=== PATIENT | male | born 1980 | race Caucasian/White ===

== ENCOUNTER 2018-04-10 21:55 | Emergency (ER) | payer SELFPAY ==
[2018-04-10 21:56] VITALS: BP 112/68; PULSE 76; RESP 18; TEMP 36.6; O2SAT 95; BMI 29.3
--- NOTE | 2018-04-10 22:39 | ED.VISSUMM ---
- ER Visit Summary Date of Service: 04/10/18 Chief Complaint: [] Abdominal pain History of Present Illness: The patient is a 37 M with abdominal pain on and off for last 2 years. He came on this morning and has been worse. It is located in the periumbilical area and is a pressure. Current severity is mild to moderate. Worsened by sitting up and relieved by laying on his side. Associated on and off with vomiting usually every day for the last year. He had normal bowel movement this morning. He was admitted a couple years ago at [facility] for similar complaints. He stated they never really found out what was the cause. He stated he has been [facility] about 4 times in the last year for this and they never been able to figure it out. Comes in for second opinion. He was at [facility] this evening and was recently just discharged from the ER. He came here for second opinion. He had labs done and was discharged. He was given a GI referral. He stated they gave him no medications to help with his symptoms. He stated he had a negative CAT scan [facility] just 2 weeks ago. This was of his abdomen. Physical Examination: [] Vital signs reviewed General: Well-nourished well-developed Head: Normocephalic atraumatic Eyes: Pupils equal round and reactive to light extraocular movements intact ENT: TMs clear no hemotympanum no trauma Neck: Nontender full range of motion Cardiovascular: Regular rate rhythm no murmurs normal S1-S2 Respiratory: No distress clear to auscultation bilaterally chest nontender Abdomen: Soft mild periumbilical tenderness nondistended normal bowel sounds no masses. No guarding or rebound Back: Nontender no CVA tenderness Extremities: Nontender active range of motion ?4 extremities no trauma Skin: Normal color no trauma Neuro alert oriented cranial nerves II through XII intact normal strength sensation reflexes Test Results: [] Emergency Department Course and Treatment: [] Patient was given a dose of Bentyl for his symptoms. He is not nauseous currently. He asked for oral and not an intramuscular injection. I discussed doing repeat lab work and imaging with the patient. He stated that he just had this done it would not like this again. I do not feel he is toxic. This appears to be a chronic issue for the patient. He was given a referral to our grapple yarder operator at his request. He will be discharged with a short course of Bentyl, Pepcid, Zofran. He will return if he worsens Treatment Plan: [] Disposition: [] Impression: [] Abdominal pain Nausea and vomiting This note was generated with Fo[employer] dictation software. It may contain incorrect words, spelling, and punctuation that were not noted in review of the chart prior to signing ED Disposition - Plan for ED Patient: Referrals: Care Physician,No Primary [Primary Care Provider] -
--- NOTE | 2018-04-10 22:42 | ED.DCSUM_ITS ---
- ER Visit Summary Date of Service: 04/10/18 Chief Complaint: [] Abdominal pain History of Present Illness: The patient is a 37 M with abdominal pain on and off for last 2 years. He came on this morning and has been worse. It is located in the periumbilical area and is a pressure. Current severity is mild to moderate. Worsened by sitting up and relieved by laying on his side. Associated on and off with vomiting usually every day for the last year. He had normal bowel movement this morning. He was admitted a couple years ago at [facility] for similar complaints. He stated they never really found out what was the cause. He stated he has been [facility] about 4 times in the last year for this and they never been able to figure it out. Comes in for second opinion. He was at [facility] this evening and was recently just discharged from the ER. He came here for second opinion. He had labs done and was discharged. He was given a GI referral. He stated they gave him no medications to help with his symptoms. He stated he had a negative CAT scan [facility] just 2 weeks ago. This was of his abdomen. Physical Examination: [] Vital signs reviewed General: Well-nourished well-developed Head: Normocephalic atraumatic Eyes: Pupils equal round and reactive to light extraocular movements intact ENT: TMs clear no hemotympanum no trauma Neck: Nontender full range of motion Cardiovascular: Regular rate rhythm no murmurs normal S1-S2 Respiratory: No distress clear to auscultation bilaterally chest nontender Abdomen: Soft mild periumbilical tenderness nondistended normal bowel sounds no masses. No guarding or rebound Back: Nontender no CVA tenderness Extremities: Nontender active range of motion ?4 extremities no trauma Skin: Normal color no trauma Neuro alert oriented cranial nerves II through XII intact normal strength sensation reflexes Test Results: [] Emergency Department Course and Treatment: [] Patient was given a dose of Bentyl for his symptoms. He is not nauseous currently. He asked for oral and not an intramuscular injection. I discussed doing repeat lab work and imaging with the patient. He stated that he just had this done it would not like this again. I do not feel he is toxic. This appears to be a chronic issue for the patient. He was given a referral to our typesetting machine tender at his request. He will be discharged with a short course of Bentyl, Pepcid, Zofran. He will return if he worsens Treatment Plan: [] Disposition: [] Impression: [] Abdominal pain Nausea and vomiting This note was generated with [employer] dictation software. It may contain incorrect words, spelling, and punctuation that were not noted in review of the chart prior to signing ED Disposition - Plan for ED Patient: Referrals: Care Physician,No Primary [Primary Care Provider] -
--- NOTE | 2018-04-10 22:42 | ED.DEP ---
ED Disposition - Plan for ED Patient: Disposition: Home or Assisted Living Instructions: ED Abdominal Pain Unkn Cause Prescriptions: Ondansetron [Zofran Odt] 4 mg PO Q8H PRN PRN #10 tab PRN Reason: Nausea Dicyclomine HCl [Bentyl] 20 mg PO TIDAC #20 cap Famotidine [Pepcid] 20 mg PO BID #28 tab Referrals: Sam Gerardo DO [NON CLINICAL AFFILIATE] - Cristhian De Jesus MD [NON-STAFF] -
[2018-04-10] MEDS: Dicyclomine 10 MG Capsule 20 MG PO (23:06)
== END 2018-04-10 23:13 | disposition home or self-care (01) ==
LOC: ED 22:56
PROVIDERS: Emergency Provider Emergency Medicine
DX: R10.9 Unspecified abdominal pain (principal); R11.2 Nausea with vomiting, unspecified; Z72.0 Tobacco use
CPT/HCPCS: 99283

== ENCOUNTER 2018-10-02 14:24 | Emergency (ER) | payer MEDICAID, SELFPAY ==
[2018-10-02 14:25] VITALS: BP 104/74; PULSE 75; RESP 16; TEMP 36.3; BMI 25.4
[2018-10-02 15:21] LABS: Absolute Neutrophil Count 7.8 X10^3/uL (2.0-7.7); Basophil# 0.06 X10^3/uL; Basophil% 0.5 % (0-1); Eosinophil# 0.08 X10^3/uL; Eosinophils% 0.7 % (0-5); Hematocrit 44.1 % (40-54); Hemoglobin 15.5 g/dL (13.0-16.5); Lymphocyte % 23.3 % (19-41); Mean Corp Hgb Conc 35.1 g/dL (32-36); Mean Corpuscular Hgb 32.4 pg (27.0-32.0); Mean Corpuscular Volume 92.3 fL (80-94); Mean Platelet Vol. 9.3 fl (6.2-12.0); Monocyte# 0.57 X10^3/uL; Monocyte% 5.1 % (0-10); NRBC Flagged by Analyzer 0 % (0-5); Neutrophil # 7.78 X10^3/uL (2.7-7.7); Platelet Count 294 K/mm3 (150-450); RBC Distribution Width CV 12.4 % (11.6-14.6); RBC Distribution Width SD 42.5 fl (35.1-43.9); Red Blood Count 4.78 M/mm3 (4.6-6.2); White Blood Count 11.1 K/mm3 (4.4-11.0)
[2018-10-02 15:32] LABS: Anion Gap 5 (5-15); BUN 11 mg/dL (7-18); BUN/Creat Ratio 11.4 RATIO (10-20); Calcium,Total 8.9 mg/dL (8.5-10.1); Chloride 107 mmol/L (98-107); Creatinine, Serum 0.97 mg/dL (0.70-1.30); EST Glomerular Filtration Rate 92 mL/min (>60); Est Glom Filt Rate - Afr Amer 111 mL/min (>60); Estimated Creatinine Clearance 118.87 ml/min; Glucose 91 mg/dL (74-106); Sodium Level 139 mmol/L (136-145)
--- NOTE | 2018-10-02 17:20 | ED.DCSUM_ITS ---
History of Present Illness Chief Complaint: Nausea/Vomiting/Diarrhea Detail of Chief Complaint: Abdominal pain and diarrhea Informant: Patient Onset: - - Diarrhea times several weeks, abdominal pain today Current Severity: Mild Maximum Severity: Moderate Narrative: Patient presents with a several week history of diarrhea. Patient states today he actually had formed stool for the first time in quite a while. He thinks there may have been some blood associated today. He woke at 5 AM this morning with lower abdominal cramping. Patient is concerned he may have Crohn's disease. He does not know his family history. He has not had fever or chills. No recent travel or antibiotic usage. Past Medical History - Allergies and Home Meds Allergies/Adverse Reactions: Allergies No Known Allergies Allergy (Verified 04/10/18 21:56) Primary Care Physician: Care Physician,No Primary [Primary Care Provider] - Doctors: [facility] Prior records reviewed: Yes Past Medical History: - - Reviewed Lives: Spouse/ Significant Other Smoking Status: Current every day smoker Drugs: Marijuana Review of Systems General: Denies: Chills, Fever Eyes: Denies: Visual changes - bilaterally ENT: Denies: Bilateral ear pain Cardiovascular: Denies: Chest pain Respiratory: Denies: Dyspnea, Cough Gastrointestinal: Reports: Abdominal pain, Diarrhea. Denies: Nausea, Vomiting Genitourinary: Denies: Dysuria Musculoskeletal: Denies: Myalgias, Arthralgias Skin: Denies: Rash Neurological: Denies: Headache Endocrine: Denies: Polyuria, Polydipsia Hematologic: Denies: Easy bruising Allergy: Denies: Uticaria Physical Exam Vital Signs/Narrative: Vital Signs Temp Pulse Resp BP 10/02/18 14:25 97.3 F L 75 16 104/74 Inital Vital Signs reviewed: Yes General: Well nourished, Well developed ENT: Moist mucous membranes Neck: Supple Cardiovascular: Regular rate, Regular rhythm Respiratory: No distress, CTA bilaterally Abdomen: Soft, Nontender, Hypoactive bowel sounds Extremities: Nontender, No edema Skin: Normal color, No rash Neurological: Alert, Oriented x3 Psychological: Normal affect Diagnostic/Tx/Re-eval Laboratory Results 10/02/18 10/02/18 10/02/18 15:10 15:10 15:10 WBC 11.1 H RBC 4.78 Hgb 15.5 Hct 44.1 MCV 92.3 MCH 32.4 H MCHC 35.1 RDW Std Deviation 42.5 RDW Coeff of Roberth 12.4 Plt Count 294 MPV 9.3 Immature Gran % (Auto) 0.400 Neut % (Auto) 70.0 Lymph % (Auto) 23.3 [place] % (Auto) 5.1 Eos % (Auto) 0.7 Baso % (Auto) 0.5 Absolute Neuts (auto) 7.8 H Absolute Lymphs (auto) 2.60 Nucleated RBC % 0 Sodium 139 Potassium 4.0 Chloride 107 Carbon Dioxide 27.0 Anion Gap 5 BUN 11 Creatinine 0.97 Estim Creat Clear Calc 118.87 Est GFR (MDRD) Af Amer 111 Est GFR (MDRD) Non-Af 92 BUN/Creatinine Ratio 11.4 Glucose 91 Calcium 8.9 Total Bilirubin 0.60 Direct Bilirubin 0.16 AST 14 L ALT 35 Alkaline Phosphatase 108 Total Protein 7.6 Albumin 4.1 Globulin 3.5 Urine Color Urine Clarity Urine pH Ur Specific [place] Urine Protein Urine Glucose (UA) Urine Ketones Urine Occult Blood Urine Nitrite Urine Bilirubin Urine Urobilinogen Ur Leukocyte Esterase Urine RBC Urine WBC Ur Squamous Epith Cells Amorphous Sediment Urine Bacteria Urine Mucus 10/02/18 18:40 WBC RBC Hgb Hct MCV MCH MCHC RDW Std Deviation RDW Coeff of [place] Plt Count MPV Immature Gran % (Auto) Neut % (Auto) Lymph % (Auto) [place] % (Auto) Eos % (Auto) Baso % (Auto) Absolute Neuts (auto) Absolute Lymphs (auto) Nucleated RBC % Sodium Potassium Chloride Carbon Dioxide Anion Gap BUN Creatinine Estim Creat Clear Calc Est GFR (MDRD) Af Amer Est GFR (MDRD) Non-Af BUN/Creatinine Ratio Glucose Calcium Total Bilirubin Direct Bilirubin AST ALT Alkaline Phosphatase Total Protein Albumin Globulin Urine Color Yellow Urine Clarity Sl. Cloudy Urine pH 8.0 Ur Specific [place] 1.015 Urine Protein Negative Urine Glucose (UA) Normal Urine Ketones Negative Urine Occult Blood Negative Urine Nitrite Negative Urine Bilirubin Negative Urine Urobilinogen Normal Ur Leukocyte Esterase 25 H Urine RBC 0 SEEN Urine WBC 0-5 SEEN Ur Squamous Epith Cells 0 SEEN Amorphous Sediment 1+ Urine Bacteria 0 SEEN Urine Mucus 0 SEEN - Medical Decision Making Patient was given Bentyl and Zofran. On repeat evaluation is resting comfortably. We discussed the possibility of Crohn's disease. He does not have a significantly elevated white count and he has a benign abdominal exam. Recommended follow-up with his PCP. He is to return for worsening symptoms. ED Disposition - Plan for ED Patient: Disposition: Home or Assisted Living Instructions: ABDOMINAL PAIN, Unkown Cause, (Male) Prescriptions: Dicyclomine HCl [Bentyl] 20 mg PO TIDAC #20 capsule Ondansetron [Zofran Odt] 4 mg PO Q8H PRN PRN #10 tablet PRN Reason: Nausea Additional Instructions: Follow-up with your doctor in the next 5-7 days.
[2018-10-02] MEDS: Ondansetron 4 MG/2 ML Vial IV (18:33)
[2018-10-02] MEDS: 0.9% Normal Saline 1,000 ML 1000 ML IV (18:33)
[2018-10-02] MEDS: Dicyclomine 20 MG/2 ML Vial IM (18:33)
[2018-10-02 18:47] LABS: Bacteria 0 SEEN /hpf (None Seen); Mucous, Urine 0 SEEN /hpf (<or=2+); Red Blood Cells-Urine 0 SEEN /hpf (0-5); Squamous Epithelial Cells - UA 0 SEEN /hpf (0-5)
[2018-10-02 18:48] LABS: Color, Urine Yellow (Yellow); Glucose, Dipstick Normal (Normal); Ketone-Dipstick Negative (Negative); Leukocyte Esterase-Dipstick 25 /ul (Negative); Nitrite-Dipstick Negative (Negative); Occult Blood-Urine Negative /ul (Negative); Protein-Dipstick Negative (Negative); Specific Gravity, Urine 1.015 (1.002-1.030); Urine Bilirubin Dipstick Negative (Negative); Urine Clarity Sl. Cloudy (Clear); Urine Urobilinogen Normal (Normal)
[2018-10-02 18:56] LABS: Amorphous Sediment 1+; White Blood Cells 0-5 SEEN /hpf (0-5)
[2018-10-02 19:07] LABS: AST(SGOT) 14 U/L (15-37); Alanine Aminotransfer ALT/SGPT 35 U/L (16-61); Albumin, Serum 4.1 g/dL (3.2-5.0); Alkaline Phosphatase 108 U/L (45-117); Bilirubin, Direct 0.16 mg/dL (0.00-0.30); Globulin 3.5 g/dL (2.2-4.2); Protein, Total 7.6 g/dL (6.4-8.2)
[2018-10-02 20:13] VITALS: BP 142/80; PULSE 72; RESP 18; O2SAT 99
== END 2018-10-02 20:14 | disposition home or self-care (01) ==
PROVIDERS: Emergency Provider Emergency Medicine
DX: R11.2 Nausea with vomiting, unspecified (principal); R10.9 Unspecified abdominal pain; R19.7 Diarrhea, unspecified; F17.200 Nicotine dependence, unspecified, uncomplicated; Z79.899 Other long term (current) drug therapy
CPT/HCPCS: 80048; 80076; 81001; 85025; 96361; 96374; 99285; J7030; A4216; J2405

== ENCOUNTER 2018-12-07 21:20 | Emergency (ER) | payer MEDICAID, SELFPAY ==
[2018-12-07 21:20] VITALS: BP 136/84; PULSE 95; RESP 16; TEMP 37; O2SAT 99; BMI 25.0
--- NOTE | 2018-12-07 21:35 | ED.VIS.GEN ---
History of Present Illness Chief Complaint: Abd Pain Informant: Patient Onset: - - Years of symptoms Current Severity: Mild Maximum Severity: Mild Narrative: Patient presents complaining of right and left-sided lower abdominal pain that is been going on for years at least 3 or more indicates had extensive outpatient evaluation with blood tests possibly imaging and he was told there is concern for inflammatory bowel disease such as Crohn's and he needs follow-up with GI for colonoscopy but he is not wanted to follow-up for that procedure indicates he has intermittent episodes of pain that intensify, indicates he is having appointment to see his physicians tomorrow for the management of all the above and he simply came to emergency room to see if he could get something to control his pain until he can see his physicians tomorrow He has history of chronic diarrhea, he is been able to eat and drink he has had no blood in his stool normal urinary habits no trauma no fever no cough no surgery Past Medical History - Allergies and Home Meds Allergies/Adverse Reactions: Allergies No Known Allergies Allergy (Verified 12/07/18 21:23) Primary Care Physician: Care Physician,No Primary [Primary Care Provider] - Past Medical History: - - Chronic abdominal pain diarrhea Smoking Status: Current every day smoker Review of Systems General: Denies: Chills, Fever, Sweats Eyes: Denies: Visual changes - bilaterally, Diplopia ENT: Denies: Rhinorrhea, Sore throat Cardiovascular: Denies: Chest pain, Palpitations Respiratory: Denies: Dyspnea, Cough, Dyspnea on exertion Gastrointestinal: Reports: Abdominal pain, Diarrhea. Denies: Nausea, Vomiting, Melena, Hematochezia Genitourinary: Denies: Dysuria, Hematuria, Frequency Musculoskeletal: Denies: Back pain, Extremity Pain Skin: Denies: Rash, Wounds Neurological: Denies: Headache, Weakness, Numbness Physical Exam Vital Signs/Narrative: Vital Signs Temp Pulse Resp BP Pulse Ox 12/07/18 21:20 98.6 F 95 16 136/84 H 99 General: Well nourished, Well developed, No Acute Distress Head: Normocephalic, Atraumatic Eyes: Perrl, EOMI ENT: Moist mucous membranes, No rhinorrhea Neck: Supple, Nontender Cardiovascular: Regular rate, Regular rhythm, No murmurs Respiratory: No distress, CTA bilaterally, Chest nontender Abdomen: Soft, Nontender, Nondistended, Normal bowel sounds Back: Nontender, Normal Inspection Extremities: Nontender, No edema Skin: Normal color, No rash Neurological: Alert, Oriented x3, Cranial nerves II-XII grossly intact, Normal Strength, Normal Sensation Psychological: Normal affect, Normal Mood Diagnostic/Tx/Re-eval - Medical Decision Making His abdomen is absolutely soft and nontender his exam is unremarkable his backs unremarkable his vital signs are normal I explained to him that the exact etiology of the above is unclear I recommended ED evaluation with labs imaging etc. he declined that saying he believes he has had those test before and he knows he needs to see a old testament professor to have a colonoscopy, he understands differentials rather extensive but again prefers outpatient management with his physicians tomorrow, at this time is treated with Toradol 60 mg IM he will stay in a bland diet and see his physicians and return for change in symptoms and again he declined any type of ED evaluation Home stable Final impression Acute recurrent abdominal pain and diarrhea ED Disposition - Plan for ED Patient: Diagnosis: Abdominal pain Instructions: ABDOMINAL PAIN, Unkown Cause, (Male) Referrals: Care Physician,No Primary [Primary Care Provider] -
--- NOTE | 2018-12-07 21:40 | ED.RN ---
patient upset with the treatment and exam by doctor. patient requesting to leave at this time. patient alert and oriented. patient walking out under own free will. patient given work excuse at this time
== END 2018-12-07 21:50 | disposition home or self-care (01) ==
LOC: ED 21:54
PROVIDERS: Emergency Provider Emergency Medicine
DX: R10.32 Left lower quadrant pain (principal); R10.31 Right lower quadrant pain; R19.7 Diarrhea, unspecified
CPT/HCPCS: 99282

== ENCOUNTER 2019-06-06 07:07 | Emergency (ER) | payer MEDICAID, SELFPAY ==
[2019-06-06 07:08] VITALS: BP 118/81; PULSE 84; RESP 16; TEMP 36.2; O2SAT 99; BMI 25.0
--- NOTE | 2019-06-06 07:20 | CT_ITS ---
STUDY: CT ABDOMEN AND PELVIS WITH CONTRAST REASON FOR EXAM: Male, 38 years old. LLQ pain, bright rectal bleeding x 2 days. Hx asthma. RADIATION DOSAGE (If Supplied By Facility): CTDIvol = ( 21.10 ) mGy, DLP = ( 1023.60 ) mGycm TECHNIQUE: Transaxial images were obtained from the dome of the diaphragm to the symphysis pubis without oral contrast. IV 100mL [id number] was administered. Sagittal and coronal images were reconstructed. Individualized dose optimization techniques were used for this CT. COMPARISON: None. FINDINGS: Mild degree of bilateral bibasilar dependent atelectasis. The visualized portions of the heart are within normal limits. Normal liver. Normal gallbladder and extrahepatic biliary system. Normal spleen. Normal pancreas. Normal bilateral adrenal glands. Normal right kidney. Normal left kidney. Normal visualized stomach. Normal small intestine. There are colonic diverticula consistent with diverticulosis. The appendix is visualized and appears normal. Normal abdominal aorta. Normal inferior vena cava. Normal retroperitoneum. Normal urinary bladder. There is a small umbilical hernia containing fat. Normal osseous structures. CT/Abdomen/Pelvis W IV Cont ONLY IMPRESSION: Sigmoid diverticulosis. Electronically Signed: Praneeth Ortiz, at 9:19 EDT , Service support ,
[2019-06-06] MEDS: 0.9% Normal Saline 1,000 ML 1000 ML IV (07:39)
[2019-06-06] MEDS: Ondansetron 4 MG/2 ML Vial IV (07:39)
[2019-06-06] MEDS: Morphine 4 MG/ML Syringe IV (07:41)
[2019-06-06 07:49] LABS: Absolute Lymphocyte Count 2.84 X10^3/uL (0.83-4.51); Basophil# 0.06 X10^3/uL; Basophil% 0.7 % (0-1); Eosinophil# 0.35 X10^3/uL; Eosinophils% 3.9 % (0-5); Hematocrit 39.6 % (40-54); Hemoglobin 13.8 g/dL (13.0-16.5); Lymphocyte # 2.84 X10^3/ul (4.0); Lymphocyte % 31.2 % (19-41); Mean Corp Hgb Conc 34.8 g/dL (32-36); Mean Corpuscular Hgb 31.4 pg (27.0-32.0); Mean Corpuscular Volume 90.2 fL (80-94); Monocyte# 0.76 X10^3/uL; Monocyte% 8.4 % (0-10); NRBC Flagged by Analyzer 0 % (0-5); Neutrophil # 5.03 X10^3/uL (2.7-7.7); Neutrophil % 55.2 % (47-70); Platelet Count 290 K/mm3 (150-450); RBC Distribution Width CV 13.1 % (11.6-14.6); RBC Distribution Width SD 43.7 fl (35.1-43.9); Red Blood Count 4.39 M/mm3 (4.6-6.2); White Blood Count 9.1 K/mm3 (4.4-11.0)
[2019-06-06 08:06] LABS: ALB/GLOB Ratio 1.2 RATIO (0.9-2.4); AST(SGOT) 24 U/L (15-37); Alanine Aminotransfer ALT/SGPT 46 U/L (16-61); Albumin, Serum 3.6 g/dL (3.2-5.0); Alkaline Phosphatase 95 U/L (45-117); Anion Gap 3 (5-15); BUN 10 mg/dL (7-18); BUN/Creat Ratio 12.1 RATIO (10-20); Calcium,Total 8.7 mg/dL (8.5-10.1); Chloride 109 mmol/L (98-107); Creatinine, Serum 0.83 mg/dL (0.70-1.30); EST Glomerular Filtration Rate 109 mL/min (>60); Est Glom Filt Rate - Afr Amer 132 mL/min (>60); Estimated Creatinine Clearance 137.55 ml/min; Globulin 3.1 g/dL (2.2-4.2); Glucose 100 mg/dL (74-106); Lipase 144 U/L (73-393); Potassium 3.7 mmol/L (3.5-5.1); Protein, Total 6.7 g/dL (6.4-8.2); Sodium Level 136 mmol/L (136-145)
[2019-06-06 08:15] LABS: Prothrombin Time (Protime)PT. 13.1 SECONDS (11.7-14.9)
[2019-06-06 08:16] LABS: Partial Thromboplast Time 31.3 Seconds (24.1-36.2)
--- NOTE | 2019-06-06 08:25 | ED.DCSUM_ITS ---
- ER Visit Summary Date of Service: 06/06/19 Chief Complaint: Abdominal pain History of Present Illness: The patient is a 38 M with left lower quadrant abdominal pain. This has been going for several months on and off. Today he is having bright red blood in his stool. He thinks he may have a history of C rohn's disease and had been seen in the ED for it multiple times, but he does not have an established GI doctor. Physical Examination: Afebrile and vital signs unremarkable. Abdomen slightly tender in the left lower quadrant. No guarding or rebound. Skin normal without pallor or jaundice. Otherwise exam unremarkable. Test Results: CBC normal. CMP unremarkable. Lipase normal. CT pending. Emergency Department Course and Treatment: Patient treated with fluids, pain medicine, Zofran while awaiting results. Labs were reassuring. Will check CT for complications there. Labs were unremarkable. A CT showed diverticulosis without diverticulitis or other complications. Patient is appropriate for outpatient follow-up and was referred to surgery boring machine operator horizontal. Treatment Plan: As above Disposition: Discharge Impression: Diverticulosis This note was generated with [employer] dictation software. It may contain incorrect words, spelling, and punctuation that were not noted in review of the chart prior to signing ED Disposition - Plan for ED Patient: Referrals: Matt Silva NP-C [Primary Care Provider] -
[2019-06-06 09:06] VITALS: BP 102/60; PULSE 51; RESP 18; O2SAT 96
--- NOTE | 2019-06-06 09:37 | ED.DEP ---
ED Disposition - Plan for ED Patient: Instructions: ED Unknown Causes of Abdominal Pain Male Referrals: Oscar Vines MD [STAFF PHYSICIAN] -
== END 2019-06-06 09:49 | disposition home or self-care (01) ==
PROVIDERS: Emergency Provider Emergency Medicine; PCP Nurse Practitioner Primary Care
DX: K57.30 Diverticulosis of large intestine without perforation or abscess without bleeding (principal); Z72.0 Tobacco use; Z79.899 Other long term (current) drug therapy
CPT/HCPCS: 74177; 80053; 83690; 85025; 85610; 85730; 96361; 96374; 96375; 99283; Q9967; A4216; J2405

== ENCOUNTER 2019-06-20 14:50 | Emergency (ER) | payer MEDICAID, SELFPAY ==
[2019-06-20 14:51] VITALS: BP 116/78; PULSE 92; RESP 18; TEMP 37.6; O2SAT 97; BMI 24.8
--- NOTE | 2019-06-20 15:02 | ED.VIS.GEN ---
History of Present Illness Chief Complaint: Abd Pain Detail of Chief Complaint: Pain worse today Informant: Patient Onset: - - Onset 4 years ago Context: Sudden Onset - Sudden onset of worsening lower abdominal pain while on the commode Timing: Continuous Quality: Pain Location: Generalized worse lower quadrant Current Severity: Severe Maximum Severity: Severe Worsened by: Movement Relieved by: Nothing Associated Symptoms: Diarrhea Narrative: Patient is a 38-year-old male who is a poor informant. He was seen earlier this month and had a CAT scan which revealed evidence of diverticulosis without evidence of diverticulitis. He reports having abdominal pain for approximately 4 years. This morning the pain got worse. States he was unable to go to work. He denies fever, chills or night sweats. There is no family history of inflammatory bowel disorder. He denies history of irritable bowel syndrome. He denies dysuria, frequency, urgency or hematuria. He denies mucus or blood in his stool. There is no history of trauma. Prior similar symptoms: Yes Recent Illness/Hospitalization: Yes - Past Medical History (1) Chronic abdominal pain Status: Chronic Past Medical History - Allergies and Home Meds Allergies/Adverse Reactions: Allergies No Known Allergies Allergy (Verified 06/20/19 14:51) Primary Care Physician: Matt Silva NP-C [Primary Care Provider] - Prior records reviewed: Yes Surgical History: no surgical history Lives: Spouse/ Significant Other Smoking Status: Current every day smoker Alcohol: Rare Drugs: None Review of Systems General: Denies: Chills, Fever, Malaise, Subjective, Sweats Eyes: Denies: Visual changes - bilaterally ENT: Denies: Rhinorrhea, Sore throat Cardiovascular: Denies: Chest pain, Palpitations Respiratory: Denies: Dyspnea, Cough, Sputum, Dyspnea on exertion Gastrointestinal: Reports: Abdominal pain, Diarrhea - When asked how many times a day he has a loose stool he states every time I go. He was unable to give a specific number, Hematochezia. Denies: Nausea, Vomiting, Constipation, Melena Genitourinary: Denies: Dysuria, Hematuria, Frequency Musculoskeletal: Denies: Myalgias, Arthralgias, Neck pain, Back pain, Swelling, Extremity Pain, -, - Skin: Denies: Rash, Wounds Neurological: Denies: Headache, Weakness, Numbness Endocrine: Denies: Polyuria, Polydipsia Hematologic: Denies: Easy bruising, Easy bleeding Physical Exam Vital Signs/Narrative: Vital Signs Temp Pulse Resp BP Pulse Ox 06/20/19 14:51 99.7 F H 92 18 116/78 97 Inital Vital Signs reviewed: Yes General: Well nourished, Well developed Head: Normocephalic, Atraumatic Eyes: Perrl, EOMI. Negative for: Pale conjunctiva, Scleral icterus ENT: No rhinorrhea Neck: Supple, Nontender, No lymphadenopathy, No JVD Cardiovascular: Regular rate, Regular rhythm, No murmurs, Normal S1, Normal S2 Respiratory: No distress, CTA bilaterally, Chest nontender Abdomen: Soft, Nondistended, No masses, Tender - Patient's tenderness is out of proportion to tactile stimulus., Hypoactive bowel sounds, Hepatomegaly, Splenomegaly, Pulsatile mass. Negative for: Nontender, Normal bowel sounds, Guarding, Rebound tenderness, Hyperactive bowel sounds Rectal: Deferred : - - There is no right or left inguinal lymphadenopathy and there is no palpable mass. Back: Nontender, Normal Inspection Extremities: Nontender, No edema Skin: Normal color, No rash, No Trauma. Negative for: Cyanosis, Diaphoresis, Jaundice Neurological: Alert, Oriented x3, Cranial nerves II-XII grossly intact, Normal Strength, Normal Sensation Psychological: Normal affect, Normal Mood Diagnostic/Tx/Re-eval - Medical Decision Making Presents with exacerbation of chronic abdominal pain. Temperature is 99.7 which is not normal but not a fever. Will obtain a CBC to assess white count. Basic metabolic panel to assess electrolytes and anion gap. Patient was medicated with Zofran and Bentyl. Differential diagnosis includes Crohn's disease, mesenteric adenitis, doubt appendicitis, abdominal pain of unknown etiology, irritable bowel syndrome Patient's history and physical was reviewed with the oncoming physician Dr. Enoch Tijerina. He will make disposition once labs have been drawn and resulted. ED Disposition - Plan for ED Patient: Referrals: Matt Silva NP-C [Primary Care Provider] -
[2019-06-20] MEDS: 0.9% Normal Saline 1,000 ML 1000 ML IV (15:18)
[2019-06-20] MEDS: Dicyclomine 10 MG Capsule 20 MG PO (15:18)
[2019-06-20] MEDS: Ondansetron 4 MG/2 ML Vial IV (15:18)
[2019-06-20 15:50] LABS: Absolute Lymphocyte Count 3.63 X10^3/uL (0.83-4.51); Absolute Neutrophil Count 4.2 X10^3/uL (2.0-7.7); Basophil# 0.06 X10^3/uL; Basophil% 0.7 % (0-1); Eosinophil# 0.24 X10^3/uL; Eosinophils% 2.7 % (0-5); Hematocrit 42.4 % (40-54); Hemoglobin 14.6 g/dL (13.0-16.5); Lymphocyte # 3.63 X10^3/ul (4.0); Mean Corp Hgb Conc 34.4 g/dL (32-36); Mean Corpuscular Hgb 30.8 pg (27.0-32.0); Mean Corpuscular Volume 89.5 fL (80-94); Mean Platelet Vol. 9.3 fl (6.2-12.0); Monocyte# 0.72 X10^3/uL; Monocyte% 8.1 % (0-10); NRBC Flagged by Analyzer 0 % (0-5); Neutrophil # 4.17 X10^3/uL (2.7-7.7); Neutrophil % 47.2 % (47-70); Platelet Count 298 K/mm3 (150-450); RBC Distribution Width SD 42.5 fl (35.1-43.9); Red Blood Count 4.74 M/mm3 (4.6-6.2); White Blood Count 8.9 K/mm3 (4.4-11.0)
[2019-06-20 16:05] LABS: Anion Gap 5 (5-15); BUN 8 mg/dL (7-18); BUN/Creat Ratio 9.4 RATIO (10-20); Calcium,Total 9.1 mg/dL (8.5-10.1); Chloride 107 mmol/L (98-107); Creatinine, Serum 0.85 mg/dL (0.70-1.30); EST Glomerular Filtration Rate 106 mL/min (>60); Est Glom Filt Rate - Afr Amer 128 mL/min (>60); Estimated Creatinine Clearance 134.31 ml/min; Glucose 97 mg/dL (74-106); Potassium 3.7 mmol/L (3.5-5.1); Sodium Level 138 mmol/L (136-145)
[2019-06-20 16:32] LABS: Lipase 104 U/L (73-393)
[2019-06-20 16:39] LABS: AST(SGOT) 17 U/L (15-37); Alanine Aminotransfer ALT/SGPT 31 U/L (16-61); Albumin, Serum 3.9 g/dL (3.2-5.0); Alkaline Phosphatase 84 U/L (45-117); Bilirubin, Direct 0.11 mg/dL (0.00-0.30); Globulin 3.3 g/dL (2.2-4.2); Protein, Total 7.2 g/dL (6.4-8.2)
[2019-06-20 17:21] VITALS: BP 112/57; PULSE 60; RESP 16; O2SAT 96
[2019-06-20] MEDS: Capsaicin 0.025% 1 APPLIC Tube TOPICAL (17:23)
--- NOTE | 2019-06-20 17:44 | ED.VISSUMM ---
- ER Visit Summary Date of Service: 06/20/19 Chief Complaint: [] History of Present Illness: The patient is a 38 M [] Physical Examination: [] Test Results: [] Emergency Department Course and Treatment: Patient signed out to me follow-up on laboratory work. CBC BMP normal, I did add lipase and LFT due to reported generalized pain which also was normal. Further discussion with the patient on reevaluation he reports history of marijuana use daily since he was 16 years old last use was yesterday. He was treated with capsaicin cream with improvement of symptoms, discussed with patient, this is a possibility causing his abdominal pain symptoms, then reports that he was abstinence from this for a couple years and still had symptoms, he restarted a year ago, discussed refraining from THC use and monitoring symptoms. He does have an appointment with Dr. Potter for which he was referred to [facility] over 2 weeks ago reporting he would likely get endoscopies as an outpatient. Prescription for Zofran and Bentyl, the capsaicin cream was sent home with the patient to use. Follow-up as discussed. Signs and symptom discussed return. All questions were answered. Treatment Plan: [] Disposition: Discharge Impression: 1. Nonspecific abdominal pain 2. Marijuana dependence This note was generated with [employer] dictation software. It may contain incorrect words, spelling, and punctuation that were not noted in review of the chart prior to signing ED Disposition - Plan for ED Patient: Disposition: Home or Assisted Living Diagnosis: Chronic abdominal pain, Tetrahydrocannabinol (THC) dependence Instructions: ED Unknown Causes of Abdominal Pain Male, ED Marijuana Abuse Prescriptions: Dicyclomine HCl [Bentyl] 20 mg PO Q6H PRN PRN #20 cap PRN Reason: abdominal pain Transmission Status: Pending to [facility] Ondansetron [Zofran Odt] 4 mg PO Q8H PRN PRN #10 tab PRN Reason: Nausea Transmission Status: Pending to [facility] Referrals: Matt Silva NP-C [Primary Care Provider] - Miles Potter MD [STAFF PHYSICIAN] - Keep Arnulfo appointment
[2019-06-20 17:57] VITALS: BP 140/79; PULSE 66; RESP 16; RESP 17; O2SAT 95
== END 2019-06-20 17:58 | disposition home or self-care (01) ==
PROVIDERS: Emergency Medicine; Emergency Provider Emergency Medicine; PCP Nurse Practitioner Primary Care
DX: R10.30 Lower abdominal pain, unspecified (principal); G89.29 Other chronic pain; R19.7 Diarrhea, unspecified; F17.200 Nicotine dependence, unspecified, uncomplicated
CPT/HCPCS: 80048; 80076; 83690; 85025; 96361; 96374; 99285; J7030; A4216; J2405

== ENCOUNTER 2019-06-25 08:29 | Day surgery (SDC) | payer MEDICAID, SELFPAY ==
[2019-06-22 08:45] VITALS: BMI 24.8
[2019-06-25] VITALS (7 sets, daily range): BP systolic 91–115; BP diastolic 38–71; PULSE 67–81; RESP 15–16; TEMP 36.3–36.5; O2SAT 95–100; BMI 24.9
[2019-06-25] MEDS: Lactated Ringers 1,000 ML 100 ML IV (08:57)
--- NOTE | 2019-06-25 08:59 | HP.PCM_ITS ---
History and Physical Date of Admission: 06/25/19 [facility] [address] [place] [address] OFFICE VISIT Date of Service: 06/22/19 MR#: [id number] Acct: [id number] Patient: NEERAJ MUÑIZ Rep #: [id number] : 1980 Provider: Miles hernandez MD Age/Sex: 38/M Location: [facility] Status: Signed Intake Vital Signs 06/22/19 BMI 24.8 06/22/19 Height 6 ft 2 in 06/22/19 Weight: 190 lb 06/22/19 BMI 24.3 Intake Visit Reasons: Abdominal Pain Chief Complaint: abdominal pain Supervisor Agency Appointments Required: No Is patient in pain?: Yes Pain scale (1-10): 6 Allergies No Known Allergies Allergy (Verified 06/22/19 08:33) Medications Omeprazole [Prilosec] 20 mg PO DAILY 10/02/18 [History Confirmed 06/22/19] Dicyclomine HCl [Bentyl] 20 mg PO Q6H PRN PRN #20 cap 06/20/19 [Rx Confirmed 06/22/19] Ondansetron [Zofran Odt] 4 mg PO Q8H PRN PRN #10 tab 06/20/19 [Rx Confirmed 06/22/19] PFSH Medical History Abdominal pain (Acute) Surgical History No history of previous surgery (Acute) Family History Grandmother Cancer stomach or intestinal cancer Diabetes Mother Cancer lung cancer Diabetes Grandfather CVA (cerebral vascular accident) Social History (Updated 06/22/19 @ 09:[address] Miles Potter MD) Smoking Status: Current every day smoker alcohol intake: current alcohol intake frequency: a few times a month substance use type: marijuana HPI HPI Chief Complaint: abdominal pain Details: Patient was informed that this visit will be billed to patient. This visit was conducted during . NEERAJ MUÑIZ, is a 38 M who presents to the office today for A telephone visit. This patient has had a 4-year history of increasing abdominal pain. He is noticed that there is no worsening with milk products and he has subsequently started to avoid these however this is not completely eliminated his pain. His pain is mostly centrally located. He has started to notice that he is developed blood in his loose diarrhea like stools. He was seen in the emergency department and was started on some Bentyl and a PPI and the Bentyl seems to have started to help. Patient also states that he has used daily marijuana which also has helped with some of his discomfort but not all of it. He does not notice a direct correlation with smoking and abdominal pain.His work-up in the emergency department showed that he had a normal CBC CAT scan of the abdomen and pelvis which showed sigmoid diverticulosis but otherwise was unrevealing other than a small umbilical hernia. ROS Const Constitutional: Positive for sleep problems and abnormal sleep pattern; no anorexia, body ache, chills, excessive sweating, fatigue, fever(s), frequent falls, headache(s), decreased energy, malaise, night sweats, snoring, weakness, weight change, change in appetite or other Eyes Eyes: No blurry vision, change in vision, double vision, discharge, dry eyes, bulging eyes, floaters, visual disturbances, eye pain, light sensitivity, spots in vision, tunnel vision or other ENT ENT: Positive for dizziness/vertigo; no abnormal hearing, ear pain, ear discharge, ear pressure, hearing loss, tinnitus, balance problems, nosebleed/epistaxis, nasal congestion, nasal obstruction, nose pain, sinus pressure, sinus pain, nasal discharge, post nasal drip, headache(s), facial pain, dental pain, dry mouth, difficulty swallowing, bad breath, hoarseness, lip swelling, mouth lesions, mouth pain, neck pain, sore throat, tongue swelling, throat swelling or other Resp Respiratory: Positive for cough and wheezing; no change in phlegm color, chest congestion, excessive phlegm production, hemoptysis, pain on inspiration, shortness of breath, pain with cough, snoring, stridor or other (asthma) Cardio Cardiology: Positive for chest pain with exertion and shortness of breath; no chest pain at rest, leg pain with exertion, excessive sweating, dyspnea on exertion, generalized swelling, irregular heart rhythm, lightheadedness, orthopnea, radiating jaw, neck or arm pain, fast heart rate, slow heart rate, palpitations or other Gastro GI: Positive for abdominal pain, diarrhea, blood in stool and nausea/dyspepsia; no belching, bloating, change in bowel habits, change in stool character, coffee ground emesis, constipation, cramping, heartburn, difficulty swallowing, feeling full early, excessive flatus, incontinent of stools, Vomiting blood/hematemesis, loose stools, Black,tarry stools, pain with swallowing, vomiting or other Genitourinary Male: No difficulty urinating, burning urination, painful urination, urinary incontinence, urinary frequency, urinary urgency, urinary hesitancy, urinary retention, blood in urine, Frequent nighttime urination/ nocturia, post void dribbling, suprapubic fullness, side pain, sexual problems, genital lesions, genital itching, erectile dysfunction, penile discharge, difficulty with ejaculations, blood in semen, scrotal swelling, testicle lump, testicle pain or other Musc Musculoskeletal: Positive for joint pain and back pain; no abnormal walking, deformity, joint swelling, limited range of motion, loss of height, muscle cramps, muscle weakness, decreased muscle mass, body aches, neck pain, numbness, radiating pain into limb, stiffness, tingling or other Skin Skin: No acne, hair loss, change in hair, nail changes, boil, change in skin color, dry skin, redness, excessive hair growth, yellowing of the skin, lesions, itching, rash, skin pain, skin ulcer, sores, skin swelling, wounds or other Breast Breast: No change in breast shape, breast lump, breast pain, breast skin changes, breast swelling, nipple discharge or other Neuro Neurology: Positive for dizziness; no abnormal walking, abnormal hearing, abnormal movements, abnormal speech, behavioral changes, confusion, unsteady gait/balance, weakness, frequent falls, headache(s), lack of coordination, loss of vision, memory loss, numbness, tingling, visual disturbances, restless legs, fainting, tremor(s) or other Psych Psychiatric: Positive for abnormal sleep pattern, No lack of enjoyment, No anxiety, No behavioral changes, No change in appetite, No confusion, Positive for depression, No difficulty concentrating, No hopelessness, No irritability, No memory loss, No mood swings, No panic attacks, No paranoia, No Thoughts of harming yourself/Others, No hallucinations, No other Endo Endocrine: No change in body appearance, cold intolerance, excessive sweating, fatigue, flushing, heat intolerance, increased thirst/drinking, increased hunger, increased urination or other Aller/Imm Allergy/Immunologic: Positive for wheezing; no food intolerance, itchy eyes, lip swelling, seasonal allergy symptoms, throat swelling, tongue swelling, hives or other Julio/Lymp Hematologic/Lymphatic: No easy bleeding, easy bruising, enlarged lymph nodes or other Exam Musc Musculoskeletal: No muscle weakness Details: Details:: Exam was limited due to phone visit with no video. Quality Reporting Medication Reconciliation (CMS 68) dicyclomine 20 mg (2 x 10 mg) PO Q6H PRN PRN omeprazole 20 mg PO DAILY ondansetron 4 mg PO Q8H PRN PRN BMI Screening (CMS 69) Body Mass Index (BMI): 24.8 Tobacco Screening (CMS 138) Smoking Status: Current every day smoker Assessment & Plan Problems 1. Chronic abdominal pain R10.9; G89.29 2. Bloody diarrhea R19.7 Plan I have discussed the above with the patient. I have offered the patient colonoscopy for evaluation. I have explained the risks/benefits of the procedure and described the procedure. I have discussed the risks with the patient, including but not limited to: infection, bleeding, perforation of the GI tract requiring emergency surgery, inability to complete the procedure, injury to any internal organs, complications of anesthesia, etc. - the patient understands and agrees to proceed. I have answered all the patient's questions to the patient's satisfaction and the patient has no further questions. The patient has been given instructions for the colon cleansing preparation. We will be doing random colon biopsies. 06/22/19901 <Electronically signed by Miles friedman MD> Date _ Miles Potter MD Cosigner Signature: Date (if applicable) CC: HAND COPERBryant Silva ~ I have re-examined the patient. There are no clinical changes since date of exam.
--- NOTE | 2019-06-25 09:00 | COLBX_PTH ---
PATIENT: NEERAJ MUÑIZ LOC: EN U#:[id number] AGE/SX: 38/M ROOM: RE06/25/[address]: Dr. Miles Potter MD : 1980 BED: DIS: 06/25/2019 SPEC #: [id number] RECD: 06/25/19 11:12 STATUS: HEENA BRAYDON #: [id number] MENDEL: 06/25/19 09:[address]: Miles Potter DEPT: SURGICAL PATHOLOGY RECD BY: Miguel Mulligan ENTERED: 06/25/19 11:52 SP TYPE: COLON BX OTHR DR: Matt Silva, VICE PRESIDENT OF NURSING-C Tissues: COLON BIOPSY Procedures: Surgery Specimen Level IV HEADER OPERATION: Colonoscopy (MAC) PRE-OP DIAGNOSIS: Abdominal pain TISSUE SUBMITTED: Random colon biopsies MICROSCOPIC DIAGNOSIS Colon, random biopsy: No significant pathologic change. See comment. AM:kenyatta 06/26/19 COMMENT Eosinophils are mildly increased in the mucosa. The significance of this is uncertain. MICROSCOPIC DESCRIPTION Slides are reviewed. GROSS DESCRIPTION Received in fixative is one container labeled with the patient's name and designated random colon biopsy. The specimen consists of multiple irregular fragments of light rich soft tissue that in aggregate measure 2 x 1 x <0.1 cm. The specimen is totally submitted in one cassette. / AM:kenyatta 06/25/19 TC:5 [facility]: [id number]
--- NOTE | 2019-06-27 12:29 | OP.COLON_ITS ---
Patient Name: Bry Boland Procedure Date: 06/25/2019 8:55 AM Date of : 1980 Age: 38 Procedure: Colonoscopy Indications: Generalized abdominal pain, Rectal bleeding Providers: Miles Potter MD Medicines: See the Anesthesia note for documentation of the administered medications Patient Profile: This is a 38 year old male. Refer to note in patient chart for documentation of history and physical. Last Colonoscopy: none. The patient's first colonoscopy is today. Complications: No immediate complications. Procedure: Pre-Anesthesia Assessment: - Prior to the procedure, a History and Physical was performed, and patient medications and allergies were reviewed. The patient's tolerance of previous anesthesia was also reviewed. The risks and benefits of the procedure and the sedation options and risks were discussed with the patient. All questions were answered, and informed consent was obtained. Prior Anticoagulants: The patient has taken no previous anticoagulant or antiplatelet agents. ASA Grade Assessment: II - A patient with mild systemic disease. After reviewing the risks and benefits, the patient was deemed in satisfactory condition to undergo the procedure. After I obtained informed consent, the scope was passed under direct vision. Throughout the procedure, the patient's blood pressure, pulse, and oxygen saturations were monitored continuously. The adult colonoscope was introduced through the anus and advanced to the cecum, identified by appendiceal orifice and ileocecal valve. The colonoscopy was performed without difficulty. The patient tolerated the procedure well. The quality of the bowel preparation was adequate to identify polyps 6 mm and larger in size. Scope In: 9:14:42 AM Scope Withdrawal Time 0 hours 7 minutes 49 seconds Scope Out: 9:29:41 AM Total Procedure Duration Time 0 hours 14 minutes 59 seconds Findings: The entire examined colon appeared normal. The colon (entire examined portion) appeared normal. Biopsies for histology were taken with a cold forceps from the entire colon for evaluation of microscopic colitis. Non-bleeding internal hemorrhoids were found during retroflexion. The hemorrhoids were mild and small. They did look irritated like they were probably the source of his bleeding. The exam was otherwise without abnormality. Impression: - The entire examined colon is normal. - The entire examined colon is normal. Biopsied. - Non-bleeding internal hemorrhoids. - The examination was otherwise normal. Recommendation: - Discharge patient to home. - Resume previous diet. - Continue present medications. - Await pathology results. - Repeat colonoscopy (date not yet determined) for surveillance. - Return to my office in 1 week. Procedure Code(s): --- Professional --- 66349, Colonoscopy, flexible; with biopsy, single or multiple Diagnosis Code(s): --- Professional --- K64.8, Other hemorrhoids R10.84, Generalized abdominal pain K62.5, Hemorrhage of anus and rectum CPT copyright 2017 [employer]. All rights reserved. The codes documented in this report are preliminary and upon advertisement distributor review may be revised to meet current compliance requirements. MD Miles Villalpando MD 06/25/2019 9:35:20 AM This report has been signed electronically. Number of Addenda: 0 Note Initiated On: 06/25/2019 8:55 AM
--- NOTE | 2019-06-27 12:29 | OP.CCLET_ITS ---
06/27/2019 Do [facility] Re : Colonoscopy procedure for Bry Joycer Ricardo This procedure was performed on Tuesday, June 25, 2019. My impressions and recommendations are as follows: Impressions : - The entire examined colon is normal. - The entire examined colon is normal. Biopsied. - Non-bleeding internal hemorrhoids. - The examination was otherwise normal. Recommendations : - Discharge patient to home. - Resume previous diet. - Continue present medications. - Await pathology results. - Repeat colonoscopy (date not yet determined) for surveillance. - Return to my office in 1 week. My findings are described in the full procedure note, which is enclosed. If I can be of further assistance, please feel free to contact me at Doctor phone number(s): , Fax: [phone], Work: . Sincerely, MD Miles Villalpando MD 06/25/2019 9:35:20 AM This report has been signed electronically.
== END 2019-06-25 10:17 | disposition home or self-care (01) ==
LOC: EN 08:30 → AC 08:31
PROVIDERS: PCP Nurse Practitioner Primary Care; Referring Provider Surgery; Visit Provider Surgery
PROC: 0DJD8ZZ Inspection of Lower Intestinal Tract, Via Natural or Artificial Opening Endoscopic (ICD-10-PCS; CPT 45378; principal; 2019-06-25 08:55)
DX: R10.84 Generalized abdominal pain (principal); G89.29 Other chronic pain; K64.8 Other hemorrhoids; K62.5 Hemorrhage of anus and rectum; R19.7 Diarrhea, unspecified; K42.9 Umbilical hernia without obstruction or gangrene; J45.909 Unspecified asthma, uncomplicated; F32.9 Major depressive disorder, single episode, unspecified; F41.9 Anxiety disorder, unspecified; F17.200 Nicotine dependence, unspecified, uncomplicated; Z79.899 Other long term (current) drug therapy; Z87.19 Personal history of other diseases of the digestive system
CPT/HCPCS: 45380; 88305; J7120; J1610; J2405

== ENCOUNTER 2019-10-16 12:13 | Emergency (ER) | payer MEDICAID, SELFPAY ==
[2019-07-02 11:19] VITALS: BMI 24.9
[2019-10-16 12:13] VITALS: BP 134/108; PULSE 92; RESP 16; TEMP 36.4; O2SAT 99; BMI 25.0
--- NOTE | 2019-10-16 12:34 | ED.DCSUM_ITS ---
- ER Visit Summary Date of Service: 10/16/19 Chief Complaint: Penis swelling History of Present Illness: The patient is a 38 M who presents with penile swelling. He states started yesterday. He thinks he got bit by something. He has swelling to the distal part of his penis. No fevers. No dysuria or hem aturia. Denies any drainage. He states that he does shave his penis. He denies any other symptoms. He tried to express any fluid but it could not. Physical Examination: Vital signs are reviewed. Abdomen is soft and nontender. Genitourinary exam reveals swelling to the distal penile shaft. There is no swelling to the glans. No penile discharge. He does have focal erythema to the distal penile shaft. There is no abscess. Test Results: None performed Emergency Department Course and Treatment: Patient appears to have a penile cellulitis. I feel no abscesses. There is nothing that needs to be drained. I will place him on Bactrim. He was advised on local wound care. He will follow- up with his doctor Treatment Plan: [] Disposition: Discharge Impression: Penile cellulitis This note was generated with [employer] dictation software. It may contain incorrect words, spelling, and punctuation that were not noted in review of the chart prior to signing ED Disposition - Plan for ED Patient: Disposition: Home or Assisted Living Instructions: ED Cellulitis Prescriptions: Smz/Tmp Ds [Bactrim Ds] 1 tab PO BID #14 tab Transmission Status: Pending to [facility] [facility] Referrals: Matt Silva NP-C [Primary Care Provider] -
[2019-10-16] MEDS: Smz/Tmp Ds Tablet 1 TABLET PO (12:46)
== END 2019-10-16 13:08 | disposition home or self-care (01) ==
LOC: ED 12:36
PROVIDERS: Emergency Provider Emergency Medicine; PCP Nurse Practitioner Primary Care
DX: N48.22 Cellulitis of corpus cavernosum and penis (principal); K21.9 Gastro-esophageal reflux disease without esophagitis
CPT/HCPCS: 99283

== ENCOUNTER 2021-10-01 13:32 | Emergency (ER) | payer OTHER, MEDICAID, SELFPAY ==
[2021-10-01 13:33] VITALS: BP 107/76; PULSE 79; RESP 14; TEMP 35.5; O2SAT 99; BMI 22.7
--- NOTE | 2021-10-01 13:51 | CT_ITS ---
INDICATION: abdominal pain EXAMINATION: CT ABDOMEN AND PELVIS WITH CONTRAST - CT Abdomen And Pelvis W/ Contrast Injection TECHNIQUE: Helically acquired images were obtained of the abdomen and pelvis following IV contrast. A radiation dose optimization technique was used for this scan. IV Contrast dosage and agent: 100 mL of ISOVUE 370. Oral contrast: None. COMPARISON: None. FINDINGS: LOWER CHEST: Lung bases are clear. No cardiomegaly or pericardial effusion. LIVER: Homogeneous. No focal mass. GALLBLADDER AND BILIARY TREE: No calcified gallstones. No gallbladder distension or wall edema. No intra- or extrahepatic biliary ductal dilation. PANCREAS: No focal cystic or solid mass. SPLEEN: Normal size without focal cystic or solid mass. ADRENAL GLANDS: No nodules. KIDNEYS AND URETERS: Normal renal size and position. No hydronephrosis. PERITONEUM: No ascites or free air. No other fluid collection. BOWEL: No evidence of acute appendicitis. No stomach or bowel distension. No focal inflammatory change. Abundance of stool is visualized in the large bowel. LYMPH NODES: Bilateral inguinal lymphadenopathy is visualized, no significant peritoneal lymphadenopathy is seen. VESSELS: Aorta is non-dilated. URINARY BLADDER: Unremarkable. REPRODUCTIVE ORGANS: No pelvic masses. ABDOMINAL WALL: No discrete abdominal or pelvic wall hernia. BONES: No lytic or blastic abnormality. CT/Abdomen/Pelvis W IV Cont ONLY IMPRESSION: Abundance of stool visualized in the large bowel. Electronically Signed: Selvin Aldrich MD at 15:00 EDT Reading Location ID and State: [facility] / [place] Tel , Service support ,
--- NOTE | 2021-10-01 13:52 | EX.ED.DYSGE1 ---
HPI History of Present Illness Chief Complaint: Abd Pain Informant: patient Narrative Narrative: 40-year-old male presenting to the emergency department chief complaint is abdominal pain. Patient states he has had pain in his abdomen for years. He states he was seen a doctor at [facility]. 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 He states that his pain is episodic. This particular episode has been going on for 3 days. He notes an increase in the amount of bowel movements he is having but no bleeding. He states he was hospitalized in the past for what they thought was Crohn's disease but he states that on follow-up it was felt he did not have Crohn's. At that point he was having bloody bowel movements. Patient notes nausea. He states that he has had prior hernia surgery and is hurting in his right inguinal region. He states that his abdomen is sore from waistline to his epigastrium and is sensitive even with his shorts on. [facility] Medical History (Updated 10/01/21 @ 15:[address] Miles Hendricks DO) Abdominal pain Home Medications sulfamethoxazole 800 mg-trimethoprim 160 mg tablet 1 tab PO BID #14 tabs 10/16/19 [Rx Last Taken Unknown] dicyclomine 20 mg tablet 20 mg PO TID PRN abdominal pain #30 tabs 10/01/21 [Rx Last Taken Unknown] hydrocodone-acetaminophen 5-325mg 5mg-325mg 1 tab PO Q6H PRN PRN Pain 3 days #12 TABLETS 10/01/21 [Rx Last Taken Unknown] pantoprazole 40 mg tablet,delayed release (Protonix) 40 mg PO DAILY #30 tabs 10/01/21 [Rx Last Taken Unknown] Allergy/AdvReac Type Severity Reaction Status Date / Time No Known Allergies Allergy Verified 10/01/21 13:33 Family History Grandmother Cancer stomach or intestinal cancer Diabetes Mother Cancer lung cancer Diabetes Grandfather CVA (cerebral vascular accident) Surgical History History of hernia repair No history of previous surgery Social History Smoking Status: Current every day smoker tobacco type: cigarettes alcohol intake: current alcohol intake frequency: a few times a month substance use type: marijuana ROS ROS ED Constitutional Constitutional ED: Denies chills or weight loss Eyes Eyes: Denies change in vision or diplopia ENT ENT ED: Denies ear pain, rhinorrhea or sore throat Cardiovascular Cardiovascular: Denies chest pain, orthopnea, palpitations or racing heartbeat Respiratory/Chest Respiratory/Chest: Denies cough, dyspnea or orthopnea Gastrointestinal Gastrointestinal: Reports abdominal pain and nausea; Denies diarrhea or vomiting Genitourinary Genitourinary ED: Denies dysuria, hematuria or urinary frequency Musculoskeletal Musculoskeletal: Denies arthralgias or myalgias Integumentary Denies abscess or rash Neurologic Neurologic: Denies headache(s) or weakness Psychiatric Psychiatric: Denies anxiety, depression, suicidal ideation or suicidal thoughts Endocrine Endocrinology: Denies polydipsia, polyphagia or polyuria Allergic/Immunologic Allergic/Immunologic ED: Denies mouth swelling, tongue swelling or urticaria EXAM Physical Exam Const Vital Signs: 10/01/21 13:33 Temperature 96 F L Temperature Source Temporal Pulse Rate 79 Respiratory Rate 14 Blood Pressure 107/76 Blood Pressure Mean 86 Pulse Ox 99 Oxygen Delivery Method Room Air Positive well nourished and well developed General Appearance ED: well developed HEENT Reports normocephalic, head/scalp atraumatic and moist mucous membranes Eyes PERRL and EOMs intact bilaterally Neck no lymphadenopathy, supple and no JVD Resp normal respiratory effort and clear to auscultation bilaterally Cardio regular rate, regular rhythm and no murmurs GI GI Narrative: Diffuse tenderness to palpation Auscultation: normoactive bowel sounds Palpation: soft; Negative for guarding or rebound tenderness present Back/Spine no CVA tenderness and normal ROM Extremity normal to inspection General Extremety ED: Negative for edema General Extremity: Negative for edema Neuro oriented x3 and CN's II-XII intact bilaterally Sensorium / Orientation: alert Motor Exam: strength 5/5 throughout Psych mental status grossly normal Mood & Affect: Negative for depressed or tearful Skin no rashes or lesions noted and no wounds MDM MDM MDM Narrative Medical decision making narrative: Patient received Toradol and Zofran. Basic blood work obtained showed a white count of 9. CMP and lipase were normal. CT the abdomen pelvis with IV contrast was obtained and this was negative for acute findings. Discussing with the patient I think he would benefit from keeping a food journal. I do not find anything acute today. He would benefit from gastroenterology evaluation. I can refer him to Dr. Summers. Can place him on Protonix and Bentyl as needed. [place] as needed for severe pain. Lab Data Attestation: I reviewed the patient's lab results. Labs: Laboratory Results - last 24 hr 10/01/21 10/01/21 10/01/21 14:06 14:06 15:00 WBC 9.0 RBC 4.45 L Hgb 14.4 Hct 41.0 MCV 92.1 MCH 32.4 H MCHC 35.1 RDW Std Deviation 44.9 H RDW Coeff of Roberth 13.3 Plt Count 282 MPV 9.6 Immature Gran % (Auto) 0.600 Neut % (Auto) 47.3 Lymph % (Auto) 40.4 Barton % (Auto) 8.8 Eos % (Auto) 2.3 Baso % (Auto) 0.6 Absolute Neuts (auto) 4.3 Absolute Lymphs (auto) 3.65 Nucleated RBC % 0 Sodium 137 Potassium 4.1 Chloride 105 Carbon Dioxide 24.0 Anion Gap 8 BUN 11 Creatinine 0.82 Estim Creat Clear Calc 133.29 Est GFR (MDRD) Af Amer 133 Est GFR (MDRD) Non-Af 110 BUN/Creatinine Ratio 13.5 Glucose 105 Calcium 8.8 Total Bilirubin 0.50 AST 17 ALT 41 Alkaline Phosphatase 78 Total Protein 6.9 Albumin 3.8 Globulin 3.1 Albumin/Globulin Ratio 1.2 Lipase 125 Urine Color Yellow Urine Clarity Cloudy Urine pH 7.0 Ur Specific [place] 1.010 Urine Protein 15 H Urine Glucose (UA) Normal Urine Ketones Negative Urine Occult Blood Negative Urine Nitrite Negative Urine Bilirubin Negative Urine Urobilinogen Normal Ur Leukocyte Esterase 25 H Radiography Diagnostic Testing: Clinical Impression(s) from Imaging Studies Abdomen/Pelvis CT 10/01/21 13:51 IMPRESSION: Abundance of stool visualized in the large bowel. Electronically Signed: Selvin Aldrich MD at 15:00 EDT , Discharge Plan Triage Chief Complaint: Abd Pain ED Provider: Miles Hendricks Dx/Rx/DC Orders Clinical Impression: Abdominal pain Instructions: ED Abdominal Pain Unkn Cause Male... Prescriptions: New pantoprazole [Protonix] 40 mg tablet,delayed release (DR/EC) 40 mg PO DAILY Qty: 30 0RF dicyclomine 20 mg tablet 20 mg PO TID PRN (Reason: abdominal pain) Qty: 30 0RF hydrocodone-acetaminophen [hydrocodone-acetaminophen] 1 TABLET tablet 1 tab PO Q6H PRN PRN (Reason: Pain) 3 Days Qty: 12 0RF No Action sulfamethoxazole-trimethoprim 1 TABLET tablet 1 tab PO BID Qty: 14 0RF Primary Care Provider: Matt Silva NP Referrals: Rodríguez Summers DO [Med Staff - Active Staff] - As soon as possible (for GI evaluation) Matt Silva KEY ENTRY OPERATOR, KEY ENTRY OPERATOR-C [Primary Care Provider] - Disposition Disposition: Home, Self Care
[2021-10-01] MEDS: Ondansetron 4 MG/2 ML Vial IV (13:58)
[2021-10-01] MEDS: Ketorolac 30 MG/ML Syringe IV (13:58)
[2021-10-01 14:11] LABS: Absolute Lymphocyte Count 3.65 X10^3/uL (0.83-4.51); Absolute Neutrophil Count 4.3 X10^3/uL (2.0-7.7); Basophil# 0.05 X10^3/uL; Basophil% 0.6 % (0-1); Eosinophil# 0.21 X10^3/uL; Eosinophils% 2.3 % (0-5); Hemoglobin 14.4 g/dL (13.0-16.5); Lymphocyte # 3.65 X10^3/ul (0.83-4.51); Lymphocyte % 40.4 % (19-41); Mean Corp Hgb Conc 35.1 g/dL (32-36); Mean Corpuscular Hgb 32.4 pg (27.0-32.0); Mean Corpuscular Volume 92.1 fL (80-94); Mean Platelet Vol. 9.6 fl (6.2-12.0); Monocyte% 8.8 % (0-10); NRBC Flagged by Analyzer 0 % (0-5); Neutrophil # 4.28 X10^3/uL (2.7-7.7); Neutrophil % 47.3 % (47-70); Platelet Count 282 K/mm3 (150-450); RBC Distribution Width CV 13.3 % (11.6-14.6); RBC Distribution Width SD 44.9 fl (35.1-43.9); Red Blood Count 4.45 M/mm3 (4.6-6.2)
[2021-10-01 14:27] LABS: ALB/GLOB Ratio 1.2 RATIO (0.9-2.4); AST(SGOT) 17 U/L (15-37); Alanine Aminotransfer ALT/SGPT 41 U/L (16-61); Albumin, Serum 3.8 g/dL (3.2-5.0); Alkaline Phosphatase 78 U/L (45-117); Anion Gap 8 (5-15); BUN 11 mg/dL (7-18); BUN/Creat Ratio 13.5 RATIO (10-20); Calcium,Total 8.8 mg/dL (8.5-10.1); Chloride 105 mmol/L (98-107); Creatinine, Serum 0.82 mg/dL (0.70-1.30); EST Glomerular Filtration Rate 110 mL/min (>60); Est Glom Filt Rate - Afr Amer 133 mL/min (>60); Estimated Creatinine Clearance 133.29 ml/min; Globulin 3.1 g/dL (2.2-4.2); Glucose 105 mg/dL (74-106); Lipase 125 U/L (73-393); Potassium 4.1 mmol/L (3.5-5.1); Protein, Total 6.9 g/dL (6.4-8.2); Sodium Level 137 mmol/L (136-145)
[2021-10-01 15:05] LABS: Bacteria 0 SEEN /hpf (None Seen); Mucous, Urine 0 SEEN /hpf (<or=2+); Red Blood Cells-Urine 0 SEEN /hpf (0-5); Squamous Epithelial Cells - UA 0 SEEN /hpf (0-5); White Blood Cells 0 SEEN /hpf (0-5)
[2021-10-01 15:11] LABS: Color, Urine Yellow (Yellow); Glucose, Dipstick Normal (Normal); Ketone-Dipstick Negative (Negative); Leukocyte Esterase-Dipstick 25 /ul (Negative); Nitrite-Dipstick Negative (Negative); Occult Blood-Urine Negative /ul (Negative); Protein-Dipstick 15 mg/dl (Negative); Urine Bilirubin Dipstick Negative (Negative); Urine Clarity Cloudy (Clear); Urine Urobilinogen Normal (Normal)
[2021-10-01 15:16] LABS: Amorphous Sediment 2+
[2021-10-01 15:19] VITALS: BP 119/79
== END 2021-10-01 15:21 | disposition home or self-care (01) ==
PROVIDERS: Emergency Provider Emergency Medicine; PCP Nurse Practitioner Primary Care; Visit Provider Emergency Medicine
DX: R10.9 Unspecified abdominal pain (principal); R11.0 Nausea; F17.210 Nicotine dependence, cigarettes, uncomplicated; Z79.899 Other long term (current) drug therapy
CPT/HCPCS: 74177; 80053; 81001; 83690; 85025; 96374; 96375; 99283; Q9967; A4216; J2405

== ENCOUNTER 2021-12-24 06:28 | Emergency (ER) | payer OTHER, MEDICAID, SELFPAY ==
[2021-12-24 06:28] VITALS: BP 136/79; PULSE 66; RESP 12; TEMP 36.9; O2SAT 98; BMI 24.5
--- NOTE | 2021-12-24 06:48 | CT_ITS ---
STUDY: CT HEAD STROKE PROTOCOL W/O CONTRAST INJECTION REASON FOR EXAM: Male, 41 years old. Dizziness RADIATION DOSAGE (If Supplied By Facility): CTDIvol = ( 47.06 ) mGy, DLP = ( 978.55 ) mGycm TECHNIQUE: Transaxial CT imaging of the brain was performed without administration of intravenous contrast material. Individualized dose optimization techniques were used for this CT. COMPARISON: No relevant priors. FINDINGS: Normal soft tissue structures. Normal calvarium. Normal size ventricles and extra-axial spaces for the patient''s age. Normal white matter tracts of the cerebral hemispheres. Normal basal ganglia and thalami. Normal brainstem. Normal cerebellum. There is no intracranial hemorrhage. There are no findings of an acute ischemic infarction. Normal visualized paranasal sinuses. CT/Brain/Head without Contrast IMPRESSION: Normal unenhanced CT scan of the brain. Electronically Signed: Bello Goodman MD, AG[place] at 8:32 EDT ,
--- NOTE | 2021-12-24 06:49 | EKG12_ITS ---
Test Reason : DIZZY Blood Pressure : / mmHG Vent. Rate : 068 BPM Atrial Rate : 068 BPM P-R Int : 162 ms QRS Dur : 106 ms QT Int : 400 ms P-R-T Axes : 008 -22 039 degrees QTc Int : 425 ms Normal sinus rhythm Septal infarct , age undetermined Abnormal ECG Confirmed by OLGA SMALL, SAMANTHA ([id number]), magazine editor REUBEN ROCK ([id number]) on 12/25/2021 2:37:23 P M Referred By: Confirmed By:CHAVEZ ESPINOZA MD
--- NOTE | 2021-12-24 06:50 | EDS_ITS ---
HPI History of Present Illness Chief Complaint: Dizziness Narrative Narrative: Patient presents with syncopal episode that happened early this morning. He states he has a longstanding history of lightheadedness for years. He denies any chest pain with this or shortness of breath but states he feels more lightheaded than dizzy and it has been worse over the last 1 week, especially over the last 2 days. He states he awoke this morning, and was seated on the toilet and he went to stretch and he passed out for a brief period. It was probably less than a minute. He states whenever he stands up quickly or walks quickly he gets very lightheaded. He denies any shortness of breath with this. He states he has been trying to tell his primary care provider, but feels he is not being heard. He did not fall off the toilet, strike his head, or sustain any injury. He and his significant other were concerned because of him passing out and then feeling that his lightheadedness is getting worse, especially over the last 2 days. [facility] Medical History Abdominal pain Home Medications sulfamethoxazole 800 mg-trimethoprim 160 mg tablet 1 tab PO BID #14 tabs 10/16/19 [Rx Last Taken Unknown] dicyclomine 20 mg tablet 20 mg PO TID PRN abdominal pain #30 tabs 10/01/21 [Rx Last Taken Unknown] hydrocodone-acetaminophen 5-325mg 5mg-325mg 1 tab PO Q6H PRN PRN Pain 3 days #12 TABLETS 10/01/21 [Rx Last Taken Unknown] pantoprazole 40 mg tablet,delayed release (Protonix) 40 mg PO DAILY #30 tabs 10/01/21 [Rx Last Taken Unknown] Allergy/AdvReac Type Severity Reaction Status Date / Time No Known Allergies Allergy Verified 12/24/21 06:35 Family History Grandmother Cancer stomach or intestinal cancer Diabetes Mother Cancer lung cancer Diabetes Grandfather CVA (cerebral vascular accident) Surgical History History of hernia repair No history of previous surgery Social History Smoking Status: Current every day smoker tobacco type: cigarettes alcohol intake: current alcohol intake frequency: a few times a month substance use type: marijuana ROS ROS ED ROS Narrative Constitutional: No fever, no chills. HEENT: No sore throat. No neck pain. No loss of vision. No rhinorrhea. Cardiovascular: No chest pain. No palpitations. No pedal edema. Respiratory: No cough, no shortness of breath. Abdominal: No abdominal pain. No nausea. No vomiting. Genitourinary: No dysuria. No hematuria. Musculoskeletal: No myalgias. No arthralgias. Neurologic: No headaches. Positive dizziness. Positive lightheadedness. Worse with standing and walking quickly, and stretching. Positive syncopal episode today. Skin: No rash. No change in color. Psychiatric: No depression. No anxiety. EXAM Physical Exam Narrative Exam Narrative: Afebrile. Vital signs noted. HEENT: Normocephalic. Atraumatic. PERRL, EOMI. Neck soft and supple. No point tenderness or step off. Cardiovascular: Regular rate and rhythm. No murmurs, rubs, or gallops appreciated. Respiratory: No tachypnea. Lungs clear to auscultation bilaterally. Gastrointestinal: Abdomen soft, nontender, with normoactive bowel sounds. No rebound or guarding. Neurological: Awake. Alert. Oriented x3. Nonfocal, nonlateralizing. Skin: No rash. Normal color. No pallor. Musculoskeletal: No pedal edema. Full range of motion extremities. Const Vital Signs: 12/24/21 06:28 Temperature 98.4 F Temperature Source Temporal Pulse Rate 66 Respiratory Rate 12 Blood Pressure 136/79 H Blood Pressure Mean 98 Pulse Ox 98 Oxygen Delivery Method Room Air MDM MDM MDM Narrative Medical decision making narrative: Comprehensive work-up was pursued. I ordered EKG, CT imaging of his brain, and basic laboratory work including orthostatics. He will be bolused IV fluids. EKG interpreted by myself demonstrates normal sinus rhythm at 68 bpm without ectopy or acute ST changes. No STEMI. His work-up is currently pending. At this point in time, patient will be signed out to Dr. Arce to check the results of the laboratory work and the imaging and make final disposition on this patient who has had years of near syncope had a syncopal episode today. Disposition is pending further evaluation. Patient is in stable condition. Discharge Plan Triage Chief Complaint: Dizziness ED Provider: Siddharth Israel Dx/Rx/DC Orders Prescriptions: No Action sulfamethoxazole-trimethoprim 1 TABLET tablet 1 tab PO BID Qty: 14 0RF pantoprazole [Protonix] 40 mg tablet,delayed release (DR/EC) 40 mg PO DAILY Qty: 30 0RF dicyclomine 20 mg tablet 20 mg PO TID PRN (Reason: abdominal pain) Qty: 30 0RF hydrocodone-acetaminophen [hydrocodone-acetaminophen] 1 TABLET tablet 1 tab PO Q6H PRN PRN (Reason: Pain) 3 Days Qty: 12 0RF Primary Care Provider: Matt Silva NP Referrals: Matt Silva ADMINISTRATION SPECIALIST, ADMINISTRATION SPECIALIST-C [Primary Care Provider] -
--- NOTE | 2021-12-24 06:51 | NURSING ---
NO OLD EKGS
[2021-12-24] MEDS: 0.9% Normal Saline 1,000 ML 999 ML IV (07:54)
[2021-12-24 08:01] LABS: Absolute Lymphocyte Count 2.45 X10^3/uL (0.83-4.51); Absolute Neutrophil Count 4.7 X10^3/uL (2.0-7.7); Basophil# 0.05 X10^3/uL; Basophil% 0.6 % (0-1); Eosinophil# 0.14 X10^3/uL; Eosinophils% 1.8 % (0-5); Hematocrit 38.6 % (40-54); Hemoglobin 13.9 g/dL (13.0-16.5); Lymphocyte # 2.45 X10^3/ul (0.83-4.51); Lymphocyte % 30.7 % (19-41); Mean Corpuscular Volume 91.7 fL (80-94); Mean Platelet Vol. 9.6 fl (6.2-12.0); Monocyte# 0.57 X10^3/uL; Monocyte% 7.2 % (0-10); NRBC Flagged by Analyzer 0 % (0-5); Neutrophil % 58.9 % (47-70); Platelet Count 290 K/mm3 (150-450); RBC Distribution Width CV 12.5 % (11.6-14.6); RBC Distribution Width SD 42.5 fl (35.1-43.9); Red Blood Count 4.21 M/mm3 (4.6-6.2)
[2021-12-24 08:21] LABS: ALB/GLOB Ratio 1.2 RATIO (0.9-2.4); AST(SGOT) 20 U/L (15-37); Alanine Aminotransfer ALT/SGPT 35 U/L (16-61); Albumin, Serum 3.6 g/dL (3.2-5.0); Alkaline Phosphatase 81 U/L (45-117); Anion Gap 3 (5-15); BUN 10 mg/dL (7-18); BUN/Creat Ratio 11.3 RATIO (10-20); Calcium,Total 8.7 mg/dL (8.5-10.1); Chloride 109 mmol/L (98-107); Creatinine, Serum 0.88 mg/dL (0.70-1.30); EST Glomerular Filtration Rate 100 mL/min (>60); Est Glom Filt Rate - Afr Amer 121 mL/min (>60); Estimated Creatinine Clearance 125.84 ml/min; Glucose 100 mg/dL (74-106); Protein, Total 6.6 g/dL (6.4-8.2); Sodium Level 139 mmol/L (136-145); Troponin-I HS 5 pg/mL (3.0-78.0)
[2021-12-24 09:36] VITALS: PULSE 64; RESP 19; O2SAT 96
[2021-12-24 09:51] VITALS: BP 114/78; BP 115/83; BP 116/80; PULSE 64; PULSE 71
--- NOTE | 2021-12-24 10:06 | NURSING ---
DR RODRÍGUEZ FOR DR AIKEN
[2021-12-24] MEDS: proMETHazine 25 MG/ML Syringe 12.5 MG IM (10:13)
[2021-12-24] MEDS: Meclizine HCl 25 MG Tablet PO (10:14)
[2021-12-24 10:16] LABS: Bacteria 0 SEEN /hpf (None Seen); Red Blood Cells-Urine 0 SEEN /hpf (0-5); White Blood Cells 0 SEEN /hpf (0-5)
[2021-12-24 10:22] LABS: Color, Urine Yellow (Yellow); Glucose, Dipstick Normal (Normal); Ketone-Dipstick Negative (Negative); Leukocyte Esterase-Dipstick Negative /ul (Negative); Nitrite-Dipstick Negative (Negative); Occult Blood-Urine Negative /ul (Negative); Protein-Dipstick Negative (Negative); Specific Gravity, Urine 1.015 (1.002-1.030); Urine Bilirubin Dipstick Negative (Negative); Urine Clarity Cloudy (Clear); Urine Urobilinogen Normal (Normal)
[2021-12-24 10:38] LABS: Mucous, Urine RARE /hpf (<or=2+); Squamous Epithelial Cells - UA 0-5 SEEN /hpf (0-5)
[2021-12-24 10:39] LABS: Amorphous Sediment 1+
[2021-12-24 11:03] VITALS: PULSE 55
[2021-12-24] MEDS: diazePAM 2 MG Tablet PO (12:14)
--- NOTE | 2021-12-24 12:20 | ED.RN ---
S/O assisted pt to restroom.
== END 2021-12-24 12:58 | disposition home or self-care (01) ==
PROVIDERS: Emergency Medicine; Emergency Provider Student in an Organized Health Care Education/Training Program; PCP Nurse Practitioner Primary Care; Visit Provider Student in an Organized Health Care Education/Training Program
DX: R42 Dizziness and giddiness (principal); F17.210 Nicotine dependence, cigarettes, uncomplicated; Z79.899 Other long term (current) drug therapy
CPT/HCPCS: 70450; 80053; 81001; 84484; 85025; 93005; 96360; 96372; 99285; J7030

== ENCOUNTER 2022-01-20 07:11 | Emergency (ER) | payer OTHER, MEDICAID, SELFPAY ==
[2022-01-20 07:11] VITALS: BP 118/85; PULSE 87; RESP 14; TEMP 36.4; O2SAT 100; BMI 24.3
--- NOTE | 2022-01-20 07:43 | EDS_ITS ---
HPI History of Present Illness Chief Complaint: Dizziness Narrative Narrative: 41-year-old male presenting with dizziness. This is not a new problem. He has had this for months. He has been seen in the ER and had EKGs and blood work done which was all normal. He states the meclizine does help with his dizziness. He followed up with ENT for his vertigo and was referred to back to his primary care doctor who wants him to see cardiology. Patient states he took his meclizine this morning and felt like he could not go to work. His dizziness is now improving. He also complains of shoulder pain in the right scapula which has been there for months. He states he is not taking anything for pain because he does not like to. He is not having any trouble moving his shoulder or his arm on the right. No paresthesias. He has no neck pain. He is not short of breath. [facility] Medical History Abdominal pain Home Medications meclizine 25 mg tablet 25 mg PO BID PRN dizziness #30 tabs 12/24/21 [Rx Last Taken Unknown] omeprazole 40 mg capsule,delayed release 40 mg PO DAILY GERD 12/24/21 [History Last Taken 12/24/21] promethazine 25 mg tablet 25 mg PO TID PRN nausea and vomiting #20 tabs 12/24/21 [Rx Last Taken Unknown] meclizine 25 mg tablet 25 mg PO BID PRN dizziness #20 tabs 01/20/22 [Rx Last Taken Unknown] Allergy/AdvReac Type Severity Reaction Status Date / Time No Known Allergies Allergy Verified 01/20/22 07:14 Family History Grandmother Cancer stomach or intestinal cancer Diabetes Mother Cancer lung cancer Diabetes Grandfather CVA (cerebral vascular accident) Surgical History History of hernia repair No history of previous surgery Social History Smoking Status: Current every day smoker tobacco type: cigarettes alcohol intake: current alcohol intake frequency: a few times a month substance use type: marijuana ROS ROS ED Constitutional Constitutional ED: Denies chills or fever(s) Eyes Eyes: Reports other Details: Vertiginous dizziness ; Denies change in vision or diplopia ENT ENT ED: Denies rhinorrhea or sore throat Cardiovascular Cardiovascular: Denies chest pain or palpitations Respiratory/Chest Respiratory/Chest: Denies cough or dyspnea Gastrointestinal Gastrointestinal: Denies abdominal pain Genitourinary Genitourinary ED: Denies dysuria or hematuria Musculoskeletal Musculoskeletal: Reports other Details: Right scapular pain ; Denies arthralgias Neurologic Neurologic: Reports headache(s); Denies paresthesias Psychiatric Psychiatric: Denies anxiety or depression EXAM Physical Exam Const Vital Signs: 01/20/22 07:11 Temperature 97.6 F L Temperature Source Temporal Pulse Rate 87 Respiratory Rate 14 Blood Pressure 118/85 H Blood Pressure Mean 96 Pulse Ox 100 Oxygen Delivery Method Room Air Positive well nourished General Appearance ED: NAD; Negative for pallor HEENT Reports moist mucous membranes Eyes PERRL and EOMs intact bilaterally Neck no lymphadenopathy and no JVD Chest Wall inspection of chest normal and palpation of chest normal Resp normal respiratory effort and clear to auscultation bilaterally Cardio regular rhythm GI normal to inspection, nondistended, normoactive bowel sounds Back/Spine Back/Spine Narrative: Focal area of point tenderness over the center of the right scapula. No deformity, redness, swelling, crepitance. Cervical Spine: Negative for cervical spine tenderness Thoracic Spine / Upper Back: Negative for thoracic spinal tenderness Psych mental status grossly normal Skin no rashes or lesions noted General Skin Exam: Negative for jaundice or pallor MDM MDM MDM Narrative Medical decision making narrative: Patient with vertigo for months presenting after he took meclizine and states his dizziness is improved. He did not feel he can go to work so requested a work note. There are no red flag symptoms. He states this is not new for him. He also complains of pain in the right scapula which has been there for months. He reports to me that he is not taking anything for pain because he does not like to take pain medicine. I recommended him that he at least try Tylenol and ibuprofen. He is given a refill on his meclizine. He is discharged home to follow-up with his PCP. Impression: 1. Vertigo 2. Right scapular pain Discharge Plan Triage Chief Complaint: Dizziness ED Provider: Andrew Arce Dx/Rx/DC Orders Instructions: Shoulder Problems, ED Vertigo, Unspecified Prescriptions: New meclizine 25 mg tablet 25 mg PO BID PRN (Reason: dizziness) Qty: 20 0RF No Action omeprazole 40 mg capsule,delayed release(DR/EC) 40 mg PO DAILY Label Comments: take 1 capsule by mouth once daily meclizine 25 mg tablet 25 mg PO BID PRN (Reason: dizziness) Qty: 30 0RF promethazine 25 mg tablet 25 mg PO TID PRN (Reason: nausea and vomiting) Qty: 20 0RF Primary Care Provider: Matt Silva NP Referrals: Matt Silva NP, AMUSEMENT EQUIPMENT OPERATOR-C [Primary Care Provider] - Disposition Disposition: Home, Self Care
== END 2022-01-20 07:58 | disposition home or self-care (01) ==
PROVIDERS: Emergency Provider Student in an Organized Health Care Education/Training Program; PCP Nurse Practitioner Primary Care; Visit Provider Student in an Organized Health Care Education/Training Program
DX: R42 Dizziness and giddiness (principal); M25.511 Pain in right shoulder; F17.210 Nicotine dependence, cigarettes, uncomplicated; Z79.899 Other long term (current) drug therapy
CPT/HCPCS: 99282

== ENCOUNTER 2022-03-04 06:30 | Emergency (ER) | payer OTHER, MEDICAID, SELFPAY ==
[2022-03-04 06:31] VITALS: BP 104/64; PULSE 74; RESP 15; TEMP 36.9; O2SAT 100; BMI 23.1
--- NOTE | 2022-03-04 07:15 | EX.ED.DYSGE1 ---
HPI History of Present Illness Chief Complaint: Abd Pain Narrative Narrative: Patient is a 41-year-old male who states that he has been having recurrent abdominal pain for approximately 6 years. He does state he has a history of abdominal hernias which were surgically fixed. He also reports that he had a colonoscopy roughly 1 year ago which showed no signs of inflammatory pathology or diverticulitis. He states that over the past 2 to 3 days he has been having a cramping/pain mainly in the mid to the left side of abdomen. He states that there has been no fevers or chills no vomiting diarrhea dysuria hematuria or constipation. He reports that he has been using [id number] medication and is taken a few Bentyl with minimal symptom improvement and secondary to this comes in for evaluation [facility] Medical History Abdominal pain Home Medications meclizine 25 mg tablet 25 mg PO BID PRN dizziness #30 tabs 12/24/21 [Rx Last Taken Unknown] omeprazole 40 mg capsule,delayed release 40 mg PO DAILY GERD 12/24/21 [History Last Taken 12/24/21] promethazine 25 mg tablet 25 mg PO TID PRN nausea and vomiting #20 tabs 12/24/21 [Rx Last Taken Unknown] dicyclomine 20 mg tablet 20 mg PO 4X/DAY PRN PRN Abdominal pain/spasm #40 tabs 03/04/22 [Rx Last Taken Unknown] Allergy/AdvReac Type Severity Reaction Status Date / Time No Known Allergies Allergy Verified 03/04/22 06:34 Family History Grandmother Cancer stomach or intestinal cancer Diabetes Mother Cancer lung cancer Diabetes Grandfather CVA (cerebral vascular accident) Surgical History History of hernia repair No history of previous surgery Social History Smoking Status: Current every day smoker tobacco type: cigarettes alcohol intake: current alcohol intake frequency: a few times a month substance use type: marijuana ROS ROS ED Constitutional Constitutional ED: Denies chills or fever(s) ENT ENT ED: Denies sore throat Cardiovascular Cardiovascular: Denies chest pain Respiratory/Chest Respiratory/Chest: Denies cough or dyspnea Gastrointestinal Gastrointestinal: Reports abdominal pain and nausea; Denies constipation, diarrhea or vomiting Genitourinary Genitourinary ED: Denies dysuria or hematuria Musculoskeletal Musculoskeletal: Denies myalgias Integumentary Denies rash Neurologic Neurologic: Denies headache(s) Hematologic/Lymphatic Hematologic/Lymphatic: Denies easy bleeding or easy bruising EXAM Physical Exam Const Vital Signs: 03/04/22 06:31 Temperature 98.4 F Temperature Source Temporal Pulse Rate 74 Respiratory Rate 15 Blood Pressure 104/64 Blood Pressure Mean 77 Pulse Ox 100 Oxygen Delivery Method Room Air Positive well nourished and well developed General Appearance ED: well developed HEENT Reports moist mucous membranes Eyes PERRL and EOMs intact bilaterally General Eye ED: Negative for scleral icterus Neck supple Resp normal respiratory effort and clear to auscultation bilaterally Cardio regular rate and regular rhythm Rate: other Other Details: Radial pulses are plus 2 out of 4 bilaterally are equal and symmetric GI non-distended GI Narrative: Abdomen is soft and nondistended with normoactive bowel sounds. There is mild diffuse pain with palpation greatest along the midepigastric and left upper quadrant regions. However no voluntary guarding or rigidity. No pulsatile mass or fluid wave Auscultation: normoactive bowel sounds Palpation: soft Back/Spine no CVA tenderness Extremity normal to inspection Neuro oriented x3 and CN's II-XII intact bilaterally Sensorium / Orientation: alert Psych mental status grossly normal Skin no rashes or lesions noted General Skin Exam: Negative for jaundice MDM MDM MDM Narrative Medical decision making narrative: Patient presented to the ER with stable vitals and a soft nonsurgical abdomen. He reported that he has had a previous colonoscopy roughly 1 year ago which not reveal any acute findings and therefore this time with his normal vitals and nonfocal exam and did not feel there was need for emergent imaging study. Basic blood work will be obtained as well as urine sample and I feel if this reveals no clinically significant changes then patient should be safe for discharge and outpatient follow-up. The case will be signed over to the day physician Dr. Brand pending results. Discharge Plan Triage Chief Complaint: Abd Pain ED Provider: Mariano Calhoun Dx/Rx/DC Orders Clinical Impression: Recurrent abdominal pain Instructions: Abdominal Pain Prescriptions: New dicyclomine 20 mg tablet 20 mg PO 4X/DAY PRN PRN (Reason: Abdominal pain/spasm) Qty: 40 0RF No Action omeprazole 40 mg capsule,delayed release(DR/EC) 40 mg PO DAILY Label Comments: take 1 capsule by mouth once daily meclizine 25 mg tablet 25 mg PO BID PRN (Reason: dizziness) Qty: 30 0RF promethazine 25 mg tablet 25 mg PO TID PRN (Reason: nausea and vomiting) Qty: 20 0RF Primary Care Provider: Matt Silva NP Referrals: oRdríguez Summers DO [Med Staff - Active Staff] - Matt Silva NP, PARTY PLAN SALESPERSON-C [Primary Care Provider] - Activity Restrictions/Additional Instructions: Please follow-up with GI because of the recurrent nature of your symptoms and return to the ER should give any further concerns Disposition Disposition: Home, Self Care
[2022-03-04] MEDS: Ondansetron 4 MG/2 ML Vial IV (07:26)
[2022-03-04] MEDS: Morphine 4 MG/ML Syringe IV (07:26)
[2022-03-04 07:42] LABS: Absolute Lymphocyte Count 2.68 X10^3/uL (0.83-4.51); Absolute Neutrophil Count 4.1 X10^3/uL (2.0-7.7); Basophil# 0.07 X10^3/uL; Basophil% 0.9 % (0-1); Eosinophil# 0.27 X10^3/uL; Eosinophils% 3.5 % (0-5); Hematocrit 40.5 % (40-54); Hemoglobin 13.8 g/dL (13.0-16.5); Lymphocyte # 2.68 X10^3/ul (0.83-4.51); Lymphocyte % 34.4 % (19-41); Mean Corp Hgb Conc 34.1 g/dL (32-36); Mean Corpuscular Hgb 32.4 pg (27.0-32.0); Mean Corpuscular Volume 95.1 fL (80-94); Mean Platelet Vol. 10.3 fl (6.2-12.0); Monocyte# 0.59 X10^3/uL; Monocyte% 7.6 % (0-10); NRBC Flagged by Analyzer 0 % (0-5); Neutrophil # 4.13 X10^3/uL (2.7-7.7); Neutrophil % 52.8 % (47-70); Platelet Count 286 K/mm3 (150-450); RBC Distribution Width CV 13.2 % (11.6-14.6); RBC Distribution Width SD 46.1 fl (35.1-43.9); Red Blood Count 4.26 M/mm3 (4.6-6.2); White Blood Count 7.8 K/mm3 (4.4-11.0)
[2022-03-04 08:00] LABS: AST(SGOT) 31 U/L (15-37); Alanine Aminotransfer ALT/SGPT 40 U/L (16-61); Albumin, Serum 3.4 g/dL (3.2-5.0); Alkaline Phosphatase 84 U/L (45-117); Anion Gap 6 (5-15); BUN 9 mg/dL (7-18); BUN/Creat Ratio 9.1 RATIO (10-20); Bilirubin, Direct 0.05 mg/dL (0.00-0.30); Calcium,Total 8.8 mg/dL (8.5-10.1); Chloride 109 mmol/L (98-107); Creatinine, Serum 0.99 mg/dL (0.70-1.30); EST Glomerular Filtration Rate 88 mL/min (>60); Est Glom Filt Rate - Afr Amer 106 mL/min (>60); Estimated Creatinine Clearance 111.04 ml/min; Globulin 3.3 g/dL (2.2-4.2); Glucose 111 mg/dL (74-106); Lipase 160 U/L (73-393); Potassium 3.6 mmol/L (3.5-5.1); Protein, Total 6.7 g/dL (6.4-8.2); Sodium Level 140 mmol/L (136-145)
--- NOTE | 2022-03-04 08:37 | CT_ITS ---
STUDY: CT ABDOMEN AND PELVIS WITH CONTRAST REASON FOR EXAM: Male, 41 years old. Chronic left lower quadrant pain. RADIATION DOSAGE (If Supplied By Facility): CTDIvol = ( 11.5 ) mGy, DLP = ( 517.96 ) mGycm TECHNIQUE: Transaxial images were obtained from the dome of the diaphragm to the symphysis pubis without oral contrast. IV 100mL Isovue-300 was administered. Sagittal and coronal images were reconstructed. Individualized dose optimization techniques were used for this CT. COMPARISON: Comparison is made with prior study dated 10/01/2021. FINDINGS: Mild degree of groundglass appearance of the lung bases suggestive of atelectasis. The visualized portions of the heart are within normal limits. Normal liver. Normal gallbladder and extrahepatic biliary system. Normal spleen. Normal pancreas. Normal bilateral adrenal glands. Normal right kidney. Normal left kidney. There is a small hiatal hernia. Normal small intestine. Scattered sigmoid diverticulosis. Mild degree of the thickening of the sigmoid colon and rectum. Localized colitis should be ruled out. The appendix is visualized and appears normal. Normal abdominal aorta. Normal inferior vena cava. Normal retroperitoneum. Normal urinary bladder. There is evidence of enlargement of both seminal vesicles bilaterally. Normal abdominal wall. Normal osseous structures. CT/Abdomen/Pelvis W IV Cont ONLY IMPRESSION: Colitis affecting the rectosigmoid colon should be ruled out. Enlargement of the seminal vesicles bilaterally. Groundglass appearance of both lung bases suggestive of a atelectasis. Electronically Signed: Praneeth Ortiz MD at 9:56 EST ,
[2022-03-04 09:13] LABS: Bacteria 0 SEEN /hpf (None Seen); Red Blood Cells-Urine 0 SEEN /hpf (0-5)
[2022-03-04 09:15] LABS: Color, Urine Yellow (Yellow); Glucose, Dipstick Normal (Normal); Ketone-Dipstick 5 mg/dl (Negative); Leukocyte Esterase-Dipstick 25 /ul (Negative); Nitrite-Dipstick Negative (Negative); Occult Blood-Urine Negative /ul (Negative); Protein-Dipstick 15 mg/dl (Negative); Specific Gravity, Urine 1.025 (1.002-1.030); Urine Bilirubin Dipstick Negative (Negative); Urine Clarity Clear (Clear); Urine Urobilinogen 1 mg/dl (Normal)
[2022-03-04 09:22] LABS: Mucous, Urine 2+ /hpf (<or=2+); Squamous Epithelial Cells - UA 0-5 SEEN /hpf (0-5)
[2022-03-04 09:25] LABS: White Blood Cells 0-5 SEEN /hpf (0-5)
[2022-03-04 10:13] VITALS: BP 102/62; PULSE 56; RESP 14; TEMP 36.2; O2SAT 99
[2022-03-04] MEDS: Amox/Clavulanate 875 MG Tablet PO (10:40)
== END 2022-03-04 10:59 | disposition home or self-care (01) ==
PROVIDERS: Emergency Medicine; Emergency Provider Emergency Medicine; PCP Nurse Practitioner Primary Care; Visit Provider Emergency Medicine
DX: R10.32 Left lower quadrant pain (principal); G89.29 Other chronic pain; R19.7 Diarrhea, unspecified; F17.210 Nicotine dependence, cigarettes, uncomplicated
CPT/HCPCS: 74177; 80048; 80076; 81001; 83690; 85025; 96374; 96375; 99283; Q9967; A4216; J2405

== ENCOUNTER 2022-03-23 06:20 | Emergency (ER) | payer OTHER, SELFPAY ==
[2022-03-23 06:21] VITALS: BP 112/80; PULSE 85; RESP 16; TEMP 36.3; O2SAT 99; BMI 23.6
--- NOTE | 2022-03-23 07:16 | CT_ITS ---
STUDY: CT ABDOMEN AND PELVIS WITH CONTRAST REASON FOR EXAM: Male, 41 years old. Lower abd pain LLQ RADIATION DOSAGE (If Supplied By Facility): CTDIvol = ( 14.67 ) mGy, DLP = ( 954.24 ) mGycm TECHNIQUE: Transaxial images were obtained from the dome of the diaphragm to the symphysis pubis without oral contrast. IV 100mL Isovue-370 was administered. Sagittal and coronal images were reconstructed. Individualized dose optimization techniques were used for this CT. COMPARISON: Comparison is made with prior study dated 09/01/2022. FINDINGS: Stable mild degree of groundglass appearance at both lung bases suggestive of atelectasis. The visualized portions of the heart are within normal limits. Normal liver. Normal gallbladder and extrahepatic biliary system. Normal spleen. Normal pancreas. Normal bilateral adrenal glands. Normal right kidney. Normal left kidney. Normal visualized stomach. Normal small intestine. Scattered sigmoid diverticula. Mild residual thickening of the rectosigmoid colon suggestive of localized colitis. This has improved as compared to prior study. The appendix is visualized and appears normal. Normal abdominal aorta. Normal inferior vena cava. Normal retroperitoneum. Normal urinary bladder. Stable enlargement of the seminal vesicles bilaterally. Normal abdominal wall. Normal osseous structures. CT/Abdomen/Pelvis W IV Cont ONLY IMPRESSION: Stable increased markings at the lung bases. Mild colitis involving the rectosigmoid colon although this has improved as compared to prior study. Stable enlargement of the seminal vesicles. Electronically Signed: Praneeth Ortiz MD at 8:54 EST ,
--- NOTE | 2022-03-23 07:17 | EDS_ITS ---
HPI HPI - GI History of Present Illness Chief Complaint: Abd Pain Informant: patient Abdominal Pain/Flank Pain Onset: Weeks Context: Gradual Onset Timing: Continuous Quality: Aching Location: LLQ Current Severity: Mild Maximum Severity: Mild Worsened by: Nothing Relieved by: Nothing Nausea/Vomiting/Emesis GI Symptom: Positive for Nausea; Negative for Vomiting Severity: Mild Diarrhea/Melena/Hematochezia GI Symptom: Positive for Diarrhea; Negative for Melena or Hematochezia Associated Symptoms Associated Symptoms: Negative for Dysuria, Frequency or Hematuria Narrative Narrative: 41-year-old male past medical history of prior right inguinal hernia repair. Chronic abdominal pain for over a year. He has had worse pain in the last week. He has had a colonoscopy diagnosed him with diverticular Kalosis. He recently has been on Augmentin for diverticulitis suspected. He has an upcoming appointment with the GI specialist Dr. De Jesus. Patient states has had about a 30 to 40 pound weight loss in the last 2 years. Denies any melena. No dysuria. Intermittent constipation and diarrhea. Prior similar symptoms: Yes Recent Illness/Hospitalization: No PFSH PFSH Medical History Abdominal pain Home Medications meclizine 25 mg tablet 25 mg PO BID PRN dizziness #30 tabs 12/24/21 [Rx Last Taken Unknown] omeprazole 40 mg capsule,delayed release 40 mg PO DAILY GERD 12/24/21 [History Last Taken 12/24/21] dicyclomine 20 mg tablet 20 mg PO 4X/DAY PRN PRN Abdominal pain/spasm #40 tabs 03/04/22 [Rx Last Taken Unknown] Allergy/AdvReac Type Severity Reaction Status Date / Time No Known Allergies Allergy Verified 03/04/22 06:34 Family History Grandmother Cancer stomach or intestinal cancer Diabetes Mother Cancer lung cancer Diabetes Grandfather CVA (cerebral vascular accident) Surgical History History of hernia repair No history of previous surgery Social History Smoking Status: Current every day smoker tobacco type: cigarettes alcohol intake: current alcohol intake frequency: a few times a month substance use type: marijuana ROS ROS ED ROS Narrative Abdominal pain. Diarrhea and constipation. Nausea. Weight loss. Review of Systems ROS Unobtainable: Denies due to encephalopathy Constitutional Constitutional ED: Denies chills or fever(s) ENT ENT ED: Denies ear pain Cardiovascular Cardiovascular: Denies chest pain Respiratory/Chest Respiratory/Chest: Denies dyspnea Gastrointestinal Gastrointestinal: Reports abdominal pain, constipation, diarrhea and nausea; Denies melena or vomiting Genitourinary Genitourinary ED: Denies dysuria or hematuria Musculoskeletal Musculoskeletal: Denies arthralgias Integumentary Denies abscess Neurologic Neurologic: Denies headache(s) Psychiatric Psychiatric: Denies anxiety Endocrine Endocrinology: Denies polydipsia Hematologic/Lymphatic Hematologic/Lymphatic: Denies easy bleeding Allergic/Immunologic Allergic/Immunologic ED: Denies mouth swelling or tongue swelling EXAM Physical Exam Narrative Exam Narrative: Well-appearing 41-year-old male. Vital signs stable afebrile. H EENT exam poor dentition. Neck nontender no lymphadenopathy. Lungs clear to auscultation bilaterally. Heart regular rhythm rate about 85 no murmur. Neck nontender. No lymphadenopathy. Abdomen is soft, nondistended, normal bowel sounds without peritoneal signs. He has tenderness in the left lower quadrant. No obvious hernia or mass. No pulsatile mass. Right upper and right lower quadrants are unremarkable. There is no signs of obstruction. He has normal bowel sounds. Abdomen is otherwise soft. External exam is unremarkable. Nontender no hernias. No testicular tenderness. Moving all 4 extremities. Back nontender. Neurologically is awake and alert. Const Vital Signs: 03/23/22 06:21 Temperature 97.4 F L Temperature Source Temporal Pulse Rate 85 Respiratory Rate 16 Blood Pressure 112/80 Blood Pressure Mean 90 Pulse Ox 99 Oxygen Delivery Method Room Air Positive well nourished and well developed; Negative for obese, cachectic, contractures or unkempt General Appearance ED: well developed and NAD; Negative for unkempt, cachectic, contractures or pallor Nutritional Appearance: Negative for cachectic or obese HEENT Reports moist mucous membranes normocephalic and atraumatic; Negative for trauma or tenderness Eyes PERRL and EOMs intact bilaterally General Eye ED: Negative for pale conjunctiva, scleral icterus or other Neck no lymphadenopathy, supple and no JVD General: Negative for tenderness Carotids: Negative for other Lymph Lymphatic: Negative for other Resp normal respiratory effort and clear to auscultation bilaterally Effort and Inspection: Negative for respiratory distress Auscultation: Negative for rales, rhonchi or wheezes Cardio regular rate, regular rhythm, S1 normal heart sound, S2 normal heart sound and no murmurs Rhythm: Negative for abnormal rhythm GI non-distended and no masses; Negative for non-tender Inspection: Negative for abdominal distention Auscultation: normoactive bowel sounds Palpation: soft and tender; Negative for guarding, rigid, hepatomegaly, splenomegaly, hernia, mass, pulsatile mass or rebound tenderness present Narrative: Nontender. No masses. No hernias. Back/Spine no CVA tenderness General Back: Negative for CVA tenderness Cervical Spine: Negative for cervical spine tenderness Thoracic Spine / Upper Back: Negative for thoracic spinal tenderness Extremity full ROM General Extremety ED: Negative for edema or tenderness General Extremity: Negative for edema Neuro CN's II-XII intact bilaterally, moves all extremities and no sensory deficits noted Sensorium / Orientation: alert, oriented to person, oriented to place and oriented to time; Negative for orientation impaired, confused, lethargic or stuporous Motor Exam: strength 5/5 throughout Psych mental status grossly normal and thought process normal Appearance: Negative for unkempt Attitude: No agitated Mood & Affect: Negative for depressed, anxious or tearful Skin no wounds General Skin Exam: Negative for jaundice or pallor Lesions: no lesions Rashes: no rashes Trauma: Negative for abrasion Nails: Negative for discolored MDM MDM MDM Narrative Medical decision making narrative: 41-year-old male with weight loss and abdominal pain. He had a CAT scan about 3 weeks ago showed inflammation of the sigmoid colon. He is within the last month or so been on Augmentin. States his pain is getting worse. He will be Brittany CAT scan in case he has developed a perforation. Versus diverticulitis versus other etiologies. Screening labs to be obtained with a urinalysis. Repeat exam at 9:12 AM patient is doing well. We discussed all his test results. Outpatient follow-up. Lab Data Attestation: I reviewed the patient's lab results. Lab results narrative: CBC normal. White count of 7.5. H&H of 13 and 39. Electrolytes show a gap of 5 normal BUN and creatinine. Normal liver enzymes. Normal lipase of 171. UA is normal. No white or red cells. Rare bacteria. No nitrites. Totally unremarkable labs. CAT scan the abdomen with IV contrast shows chronic findings that are improved from his last CAT scan a month ago. Labs: Laboratory Results - last 24 hr 03/23/22 03/23/22 03/23/22 07:20 07:30 07:30 WBC 7.5 RBC 4.18 L Hgb 13.7 Hct 39.1 L MCV 93.5 MCH 32.8 H MCHC 35.0 RDW Std Deviation 44.7 H RDW Coeff of [place] 13.1 Plt Count 272 MPV 9.4 Immature Gran % (Auto) 0.500 Neut % (Auto) 44.0 L Lymph % (Auto) 39.5 [place] % (Auto) 10.5 H Eos % (Auto) 4.6 Baso % (Auto) 0.9 Absolute Neuts (auto) 3.3 Absolute Lymphs (auto) 2.95 Nucleated RBC % 0 Sodium 139 Potassium 4.0 Chloride 107 Carbon Dioxide 27.0 Anion Gap 5 BUN 10 Creatinine 0.77 Estim Creat Clear Calc 143.82 Est GFR (MDRD) Af Amer 141 Est GFR (MDRD) Non-Af 117 BUN/Creatinine Ratio 13.0 Glucose 93 Calcium 8.5 Total Bilirubin 0.20 AST 18 ALT 35 Alkaline Phosphatase 82 Total Protein 6.7 Albumin 3.4 Globulin 3.3 Albumin/Globulin Ratio 1.0 Lipase 171 Urine Color Yellow Urine Clarity Clear Urine pH 6.5 Ur Specific [place] 1.020 Urine Protein 15 H Urine Glucose (UA) Normal Urine Ketones 5 H Urine Occult Blood Negative Urine Nitrite Negative Urine Bilirubin Negative Urine Urobilinogen 1 H Ur Leukocyte Esterase 25 H Urine RBC 0 SEEN Urine WBC 0-5 SEEN Ur Squamous Epith Cells 0-5 SEEN Calcium Oxalate Crystal RARE Urine Bacteria RARE Urine Mucus 0 SEEN Radiography Diagnostic Testing: Clinical Impression(s) from Imaging Studies Abdomen/Pelvis CT 03/23/22 07:16 IMPRESSION: Stable increased markings at the lung bases. Mild colitis involving the rectosigmoid colon although this has improved as compared to prior study. Stable enlargement of the seminal vesicles. Electronically Signed: Praneeth Ortiz MD at 8:54 EST , Discharge Plan Triage Chief Complaint: Abd Pain ED Provider: Marino Burgos Dx/Rx/DC Orders Clinical Impression: Chronic abdominal pain Instructions: Abdominal Pain Prescriptions: No Action omeprazole 40 mg capsule,delayed release(DR/EC) 40 mg PO DAILY Label Comments: take 1 capsule by mouth once daily meclizine 25 mg tablet 25 mg PO BID PRN (Reason: dizziness) Qty: 30 0RF dicyclomine 20 mg tablet 20 mg PO 4X/DAY PRN PRN (Reason: Abdominal pain/spasm) Qty: 40 0RF Primary Care Provider: Care Physician,No Primary Referrals: Matt Silva COLLATERAL ANALYST, COLLATERAL ANALYST-C [Non-Staff] - 1 Week if not improving Activity Restrictions/Additional Instructions: Follow-up with your GI Dr. Dr. De Jesus. Motrin and Tylenol for pain. Your labs and CAT scan today were unremarkable. Disposition Disposition: Home, Self Care
[2022-03-23 07:42] LABS: Mucous, Urine 0 SEEN /hpf (<or=2+); Red Blood Cells-Urine 0 SEEN /hpf (0-5)
[2022-03-23 07:47] LABS: Absolute Lymphocyte Count 2.95 X10^3/uL (0.83-4.51); Absolute Neutrophil Count 3.3 X10^3/uL (2.0-7.7); Basophil# 0.07 X10^3/uL; Basophil% 0.9 % (0-1); Eosinophil# 0.34 X10^3/uL; Eosinophils% 4.6 % (0-5); Hematocrit 39.1 % (40-54); Hemoglobin 13.7 g/dL (13.0-16.5); Lymphocyte # 2.95 X10^3/ul (0.83-4.51); Lymphocyte % 39.5 % (19-41); Mean Corpuscular Hgb 32.8 pg (27.0-32.0); Mean Corpuscular Volume 93.5 fL (80-94); Mean Platelet Vol. 9.4 fl (6.2-12.0); Monocyte# 0.78 X10^3/uL; Monocyte% 10.5 % (0-10); NRBC Flagged by Analyzer 0 % (0-5); Neutrophil # 3.28 X10^3/uL (2.7-7.7); Platelet Count 272 K/mm3 (150-450); RBC Distribution Width CV 13.1 % (11.6-14.6); RBC Distribution Width SD 44.7 fl (35.1-43.9); Red Blood Count 4.18 M/mm3 (4.6-6.2); White Blood Count 7.5 K/mm3 (4.4-11.0)
[2022-03-23 07:54] LABS: Glucose, Dipstick Normal (Normal); Ketone-Dipstick 5 mg/dl (Negative); Leukocyte Esterase-Dipstick 25 /ul (Negative); Nitrite-Dipstick Negative (Negative); Occult Blood-Urine Negative /ul (Negative); Protein-Dipstick 15 mg/dl (Negative); Urine Bilirubin Dipstick Negative (Negative); Urine Urobilinogen 1 mg/dl (Normal); Urine pH 6.5 (5.0 - 8.0)
[2022-03-23 07:59] LABS: Color, Urine Yellow (Yellow); Urine Clarity Clear (Clear)
[2022-03-23 08:08] LABS: AST(SGOT) 18 U/L (15-37); Alanine Aminotransfer ALT/SGPT 35 U/L (16-61); Albumin, Serum 3.4 g/dL (3.2-5.0); Alkaline Phosphatase 82 U/L (45-117); Anion Gap 5 (5-15); BUN 10 mg/dL (7-18); Calcium,Total 8.5 mg/dL (8.5-10.1); Chloride 107 mmol/L (98-107); Creatinine, Serum 0.77 mg/dL (0.70-1.30); EST Glomerular Filtration Rate 117 mL/min (>60); Est Glom Filt Rate - Afr Amer 141 mL/min (>60); Estimated Creatinine Clearance 143.82 ml/min; Globulin 3.3 g/dL (2.2-4.2); Glucose 93 mg/dL (74-106); Lipase 171 U/L (73-393); Protein, Total 6.7 g/dL (6.4-8.2); Sodium Level 139 mmol/L (136-145)
[2022-03-23 08:17] LABS: Calcium Oxalate Crystals Ur RARE /hpf (<or=2+)
[2022-03-23 08:19] LABS: Bacteria RARE /hpf (None Seen); Squamous Epithelial Cells - UA 0-5 SEEN /hpf (0-5); White Blood Cells 0-5 SEEN /hpf (0-5)
[2022-03-23 09:21] VITALS: BP 98/62; PULSE 51; RESP 14; O2SAT 98
== END 2022-03-23 09:21 | disposition home or self-care (01) ==
PROVIDERS: Emergency Provider Emergency Medicine; Visit Provider Emergency Medicine
DX: R10.32 Left lower quadrant pain (principal); R11.0 Nausea; R19.7 Diarrhea, unspecified; G89.29 Other chronic pain; K57.92 Diverticulitis of intestine, part unspecified, without perforation or abscess without bleeding; Z79.899 Other long term (current) drug therapy; F17.210 Nicotine dependence, cigarettes, uncomplicated; F12.90 Cannabis use, unspecified, uncomplicated
CPT/HCPCS: 74177; 80053; 81001; 83690; 85025; 99283; Q9967; A4216

== ENCOUNTER → 2022-03-31 | Outpatient (CLI) | payer OTHER, SELFPAY ==
[2022-03-31 12:51] LABS: CRP < 2.90 mg/L (0.0-3.0)
[2022-04-01 16:09] LABS: Endomysial Antibody IgA Negative (Negative)
[2022-04-01 19:45] LABS: Immunoglobulin A 320 mg/dL (90-386); t-Transglutaminase IgA <2 U/mL (0-3)
== END | disposition home or self-care (01) ==
PROVIDERS: Referring Provider Internal Medicine Gastroenterology; Visit Provider Internal Medicine Gastroenterology
DX: R10.9 Unspecified abdominal pain (principal)
CPT/HCPCS: 36415; 82784; 83516; 86140; 86255

== ENCOUNTER 2022-11-26 19:36 | Emergency (ER) | payer MEDICAID, SELFPAY ==
[2022-11-26 19:38] VITALS: BP 118/73; PULSE 88; RESP 16; TEMP 36.5; O2SAT 99; BMI 23.8
--- NOTE | 2022-11-26 19:53 | EDS_ITS ---
HPI History of Present Illness Chief Complaint: Upper Extremity Injury Detail of Chief Complaint: Right shoulder pain Informant: patient Narrative Narrative: Patient presents secondary to right shoulder pain. He states is been working with his doctor to try to keep the right shoulder pain under control and he is currently taking cyclobenzaprine. Today he was too painful to go to work. No new injury. He states has been taking ibuprofen intermittently but did not take any today. [facility] Medical History Abdominal pain Muscular dystrophy Home Medications clonazepam .ROUTE PAIN 11/26/22 [History Last Taken Unknown] Allergy/AdvReac Type Severity Reaction Status Date / Time No Known Allergies Allergy Verified 11/26/22 19:37 Family History Grandmother Cancer stomach or intestinal cancer Diabetes Mother Cancer lung cancer Diabetes Grandfather CVA (cerebral vascular accident) Surgical History History of hernia repair No history of previous surgery Social History Smoking Status: Current every day smoker tobacco type: cigarettes alcohol intake: current alcohol intake frequency: a few times a month substance use type: marijuana ROS ROS ED Constitutional Constitutional ED: Denies chills or fever(s) Eyes Eyes: Denies change in vision or discharge from eye(s) ENT ENT ED: Denies discharge from eye(s), rhinorrhea or sore throat Cardiovascular Cardiovascular: Denies chest pain or palpitations Respiratory/Chest Respiratory/Chest: Denies cough or dyspnea Gastrointestinal Gastrointestinal: Denies abdominal pain, nausea or vomiting Musculoskeletal Musculoskeletal: Reports extremity pain; Denies back pain Integumentary Denies Abrasions or rash Neurologic Neurologic: Denies headache(s) or weakness Psychiatric Psychiatric: Denies anxiety or depression Allergic/Immunologic Allergic/Immunologic ED: Denies lip swelling or urticaria EXAM Physical Exam Const Vital Signs: 11/26/22 19:38 Temperature 97.7 F L Temperature Source Temporal Pulse Rate 88 Respiratory Rate 16 Blood Pressure 118/73 Blood Pressure Mean 88 Pulse Ox 99 Positive well nourished and well developed General Appearance ED: well developed HEENT Reports moist mucous membranes Eyes EOMs intact bilaterally Neck full ROM Chest Wall inspection of chest normal and palpation of chest normal Resp normal respiratory effort and clear to auscultation bilaterally Cardio regular rate and regular rhythm GI non-tender Extremity normal to inspection Extremity Narrative: Mild tenderness to palpation in the musculature over the posterior right shoulder, primarily over the supraspinatus region. Good range of motion of the shoulder. No C-spine tenderness. Neuro oriented x3 and moves all extremities Psych mental status grossly normal MDM MDM MDM Narrative Medical decision making narrative: Patient is currently taking cyclobenzaprine to help with muscle spasm. I encouraged him to take ibuprofen on a more regular basis to help with anti- inflammatory effects. We also discussed using something to help reduce stomach acid so he does not develop gastritis or an ulcer. I do not feel that imaging is needed at this time. He will be given a work note for today. Discharge Plan Triage Chief Complaint: Upper Extremity Injury ED Provider: Vero Madrigal Dx/Rx/DC Orders Clinical Impression: Shoulder sprain Instructions: ED Shoulder Sprain Prescriptions: No Action clonazepam [Klonopin] .ROUTE Patient Comments: UNSURE OF DOSE Stand Alone Forms: ED Work / School Excuse Primary Care Provider: Care Physician,No Primary Referrals: Care Physician,No Primary [Primary Care Provider] - Matt Silva LOLLYPOP MACHINE OPERATOR, LOLLYPOP MACHINE OPERATOR-C [Non-Staff] - 1 Week if not improving Disposition Disposition: Home, Self Care
[2022-11-26] MEDS: Ibuprofen 600 MG Tablet PO (20:06)
== END 2022-11-26 20:09 | disposition home or self-care (01) ==
LOC: ED 20:05
PROVIDERS: Emergency Provider Emergency Medicine; PCP Nurse Practitioner Primary Care; Visit Provider Emergency Medicine
DX: S43.401A Unspecified sprain of right shoulder joint, initial encounter (principal); X58.XXXA Exposure to other specified factors, initial encounter; F17.210 Nicotine dependence, cigarettes, uncomplicated
CPT/HCPCS: 99283

== ENCOUNTER 2023-02-07 11:44 | Emergency (ER) | payer MEDICAID, OTHER, SELFPAY ==
[2023-02-07 11:44] VITALS: BP 118/71; PULSE 75; RESP 18; TEMP 36.7; O2SAT 100
--- NOTE | 2023-02-07 11:56 | EX.ED.DYSGE1 ---
HPI <URSZULA Nugent - Last Filed: 02/07/23 12:14> History of Present Illness Chief Complaint: Abd Pain Narrative Narrative: 42-year-old male states he has chronic abdominal issues and is having a flareup with increased indigestion and constipation. He states he knows how to manage it and takes laxatives and his last BM was yesterday. He called off work due to the abdominal pain and his employer told him he needs a note to be able to return to work tomorrow. He states he does not want any testing or medication. He states he had a normal colonoscopy in the past and they rule out Crohn's disease and he just wants to manage his symptoms at home. PFSH <URSZULA Nugent - Last Filed: 02/07/23 12:14> [facility] Medical History Abdominal pain Muscular dystrophy Home Medications clonazepam .ROUTE PAIN 11/26/22 [History Last Taken Unknown] Allergy/AdvReac Type Severity Reaction Status Date / Time No Known Allergies Allergy Verified 02/07/23 11:44 Family History Grandmother Cancer stomach or intestinal cancer Diabetes Mother Cancer lung cancer Diabetes Grandfather CVA (cerebral vascular accident) Surgical History History of hernia repair No history of previous surgery Social History Smoking Status: Current every day smoker tobacco type: cigarettes alcohol intake: current alcohol intake frequency: a few times a month substance use type: marijuana ROS <URSZULA Nugent - Last Filed: 02/07/23 12:14> ROS ED ROS Narrative Constitutional: Negative for fever, chills, malaise. CVS: Negative for chest pain. Respiratory: Negative for shortness of breath. GI: Positive for abdominal pain, constipation Negative for nausea, vomiting, diarrhea, melena, hematochezia. : Negative for dysuria, hematuria or frequency. EXAM <URSZULA Nugent - Last Filed: 02/07/23 12:14> Physical Exam Narrative Exam Narrative: CONST: Patient sitting in no acute distress. EYES: Normal inspection NECK: Normal inspection. RESP: No respiratory distress, CTAB. CVS: Regular rate and rhythm, no murmur, no gallop. ABD: Soft with mild generalized tenderness, no guarding or rebound, nondistended, no hepatosplenomegaly. SKIN: Color normal, no rash, warm, dry, intact. EXTREMITIES: Normal appearance, no pedal edema. NEURO: Oriented x4. PSYCH: Normal affect. Const Vital Signs: 02/07/23 11:44 Temperature 98.0 F Temperature Source Temporal Pulse Rate 75 Respiratory Rate 18 Blood Pressure 118/71 Blood Pressure Mean 86 Pulse Ox 100 Oxygen Delivery Method Room Air <Dr. Miles Hendricks DO - Last Filed: 02/07/23 12:33> Physical Exam Const Vital Signs: 02/07/23 11:44 Temperature 98.0 F Temperature Source Temporal Pulse Rate 75 Respiratory Rate 18 Blood Pressure 118/71 Blood Pressure Mean 86 Pulse Ox 100 Oxygen Delivery Method Room Air [facility] <URSZULA Nugent - Last Filed: 02/07/23 12:14> [facility] Narrative Medical decision making narrative: Patient is having a flare of his chronic indigestion and constipation. He is having bowel movements. He is tolerating p.o. intake. He appears well and nontoxic with normal vital signs and has a soft, nonsurgical abdomen. He declines blood work or imaging. He states he is only here for a note because he called off work and his employer requested it. Patient counseled to return for evaluation if symptoms worsen in any way and he was discharged in stable condition. <Dr. Miles Hendricks, - Last Filed: 02/07/23 12:33> [facility] Narrative Medical decision making narrative: Patient is having a flare of his chronic indigestion and constipation. He is having bowel movements. He is tolerating p.o. intake. He appears well and nontoxic with normal vital signs and has a soft, nonsurgical abdomen. He declines blood work or imaging. He states he is only here for a note because he called off work and his employer requested it. Patient counseled to return for evaluation if symptoms worsen in any way and he was discharged in stable condition. I have personally performed a face to face assessment of the patient and have reviewed the HEATHER Note. I performed a substantive portion of the visit including all aspects of the following. My sarmiento findings include: History is 42-year-old male with left upper quadrant abdominal pain. Patient states that this is a recurrent problem for him. He states he has had evaluations for this including colonoscopy. He states that he believes he ate something abnormal yesterday which resulted in a cramping-like pain. States it made him constipated but he is now moving his bowels I have gotten a hold of the pain. He states he has no history of colitis or diverticulitis. No abdominal trauma. No vomiting. He states that he had to call off work today due to the pain and his boss requires him to have a note. The patient states that he does not wish to have any significant workup. Exam is mild tenderness to palpation. No peritoneal sign. He is afebrile. Medical Decison Making patient states that this is not new for him. This is episodic. He states he had a prior workup. He has capacity to refuse treatments in accordance with his believes. Patient to return if worsening or concerns. Discharge Plan Triage Chief Complaint: Abd Pain ED Midlevel Provider: Tresa Torres ED Provider: Miles Hendricks Dx/Rx/DC Orders Clinical Impression: Chronic constipation, Abdominal pain Instructions: Abdominal Pain Prescriptions: No Action clonazepam [Klonopin] .ROUTE Patient Comments: UNSURE OF DOSE Primary Care Provider: Matt Silva NP Referrals: Matt Silva NP, CLASSIFICATION CONTROL CLERK-C [Primary Care Provider] - Activity Restrictions/Additional Instructions: Please return for evaluation if your symptoms worsen in any way Disposition Disposition: Home, Self Care Discharge Date/Time: 02/07/23 12:28
[2023-02-07 11:59] VITALS: BMI 25.7
== END 2023-02-07 12:28 | disposition home or self-care (01) ==
LOC: ED 12:10
PROVIDERS: Emergency Provider Emergency Medicine; PCP Nurse Practitioner Primary Care; Visit Provider Emergency Medicine
DX: K59.09 Other constipation (principal); G71.00 Muscular dystrophy, unspecified; R10.9 Unspecified abdominal pain; F12.90 Cannabis use, unspecified, uncomplicated; F17.210 Nicotine dependence, cigarettes, uncomplicated
CPT/HCPCS: 99282

== ENCOUNTER 2023-03-16 10:35 | Emergency (ER) | payer OTHER, MEDICAID, SELFPAY ==
[2023-03-16 10:37] VITALS: BP 118/67; PULSE 84; RESP 18; TEMP 36.7; O2SAT 97; BMI 23.1
--- NOTE | 2023-03-16 11:11 | EDS_ITS ---
HPI HPI - GI History of Present Illness Chief Complaint: Abd Pain Detail of Chief Complaint: Abdominal pain Informant: patient Narrative Narrative: Patient presents to the emergency department with complaint of abdominal pain that started this morning. Patient states that it was kind of diffuse and severe and he could not go to work. 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 Patient states currently his pain is resolved and he is back to his baseline. He has had prior hernia repairs in the past. He had no vomiting. He had no fever. Denies urinary symptoms. [facility] Medical History Abdominal pain Muscular dystrophy Home Medications clonazepam .ROUTE PAIN 11/26/22 [History Last Taken Unknown] Allergy/AdvReac Type Severity Reaction Status Date / Time No Known Allergies Allergy Verified 03/16/23 10:36 Family History Grandmother Cancer stomach or intestinal cancer Diabetes Mother Cancer lung cancer Diabetes Grandfather CVA (cerebral vascular accident) Surgical History History of hernia repair No history of previous surgery Social History Smoking Status: Current every day smoker tobacco type: cigarettes alcohol intake: current alcohol intake frequency: a few times a month substance use type: marijuana ROS ROS ED Review of Systems ROS Unobtainable: other Constitutional Constitutional ED: Reports lethargy; Denies chills, fever(s), sweats or weight loss Eyes Eyes: Denies blurry vision, change in vision or diplopia ENT ENT ED: Denies rhinorrhea or sore throat Cardiovascular Cardiovascular: Denies chest pain, orthopnea or racing heartbeat Respiratory/Chest Respiratory/Chest: Denies cough, dyspnea, dyspnea on exertion, orthopnea or sputum Gastrointestinal Gastrointestinal: Reports abdominal pain; Denies diarrhea, nausea or vomiting Genitourinary Genitourinary ED: Denies dysuria, hematuria or urinary frequency Musculoskeletal Musculoskeletal: Denies arthralgias, back pain, myalgias or neck pain Integumentary Denies abscess, Abrasions or rash Neurologic Neurologic: Denies headache(s) or weakness Psychiatric Psychiatric: Denies anxiety, depression or suicidal thoughts Endocrine Endocrinology: Denies polydipsia, polyphagia or polyuria Hematologic/Lymphatic Hematologic/Lymphatic: Denies easy bleeding, easy bruising or lymphadenopathy Allergic/Immunologic Allergic/Immunologic ED: Denies mouth swelling, tongue swelling or urticaria EXAM Physical Exam Const Vital Signs: 03/16/23 10:37 Temperature 98.1 F Temperature Source Temporal Pulse Rate 84 Respiratory Rate 18 Blood Pressure 118/67 Blood Pressure Mean 84 Pulse Ox 97 Oxygen Delivery Method Room Air Positive well nourished and well developed General Appearance ED: well developed and NAD HEENT Reports TM's clear and moist mucous membranes normocephalic and atraumatic; Negative for trauma or tenderness Tympanic Membrane ED: Yes TM's clear Eyes PERRL and EOMs intact bilaterally General Eye ED: Negative for pale conjunctiva or scleral icterus Neck no lymphadenopathy, supple and no JVD General: Negative for tenderness Chest Wall inspection of chest normal and palpation of chest normal Chest: Negative for tenderness Resp normal respiratory effort and clear to auscultation bilaterally Effort and Inspection: Negative for respiratory distress or pain with movement Auscultation: Negative for rhonchi, wheezes or diminished lung sounds Cardio regular rate, regular rhythm, S1 normal heart sound, S2 normal heart sound and no murmurs Peripheral Pulses: pulses 2+ throughout GI normal to inspection, nondistended, normoactive bowel sounds, soft to palpation, non-tender, non-distended and no masses GI Narrative: Abdomen is benign on exam. There is no rebound, rigidity, or peritoneal signs. No mass palpated. Back/Spine no CVA tenderness and no thoracic nor lumbar tenderness Extremity normal to inspection General Extremety ED: Negative for edema General Extremity: Negative for edema Neuro oriented x3, CN's II-XII intact bilaterally, no sensory deficits noted and gait normal Sensorium / Orientation: awake, alert, oriented to person, oriented to place and oriented to time Motor Exam: strength 5/5 throughout and strength abnormal Psych mental status grossly normal Skin no rashes or lesions noted and no wounds MDM MDM MDM Narrative Medical decision making narrative: Patient presents with chronic abdominal pain now resolved. Clinically looks well. Patient does not want to have any type of workup because he states he is back to his baseline and is that he has been dealing with this type of pain for a long time and see specialist. Patient just wants a note for work because he can go to work. Patient advised to return if worsening pain, fever, vomiting, or condition should worsen anyway. Discharge Plan Triage Chief Complaint: Abd Pain ED Provider: Eros Chowdary Dx/Rx/DC Orders Clinical Impression: Chronic abdominal pain Instructions: ED Abdominal Pain Unkn Cause Male... Prescriptions: No Action clonazepam [Klonopin] .ROUTE Patient Comments: UNSURE OF DOSE Primary Care Provider: Matt Silva NP Referrals: Matt Silva HUMAN RESOURCES ASSISTANT MANAGER, HUMAN RESOURCES ASSISTANT MANAGER-C [Primary Care Provider] - Disposition Disposition: Home, Self Care Capacity Legal House Shorer Reflex Medical hold order details:: IF a medical hold is selected below, a suggested order for a MEDICAL HOLD will reflex upon signing the document. Next of kin: [place] law dictates a PRIORITY LIST for identifying legal decision-maker/legal next of kin in the following order (LNOK): 1st: The patient?s legal guardian, if any 2nd: The patient's spouse (if status is questionable, consult Risk Management) 3rd: The patient?s adult child(esau) (majority, if multiple children) 4th: The patient?s parents 5th: The patient?s adult siblings (majority, if multiple children siblings)
--- OUTSIDE RECORDS SUMMARY | 2023-03-16 11:43 | XMS RPT_ITS | CCD ---
Author Name Unknown Address [address] [place] [address] Organization [facility] Care Team Providers Care Fur Sorter Name Role Phone CARMEN BYRNES, SCOUT Primary Care Physician [phone] CARMEN BYRNES, SCOUT Attending Unavailabl e BALTES EXERCISE SCIENTIST-DIRECTOR OF MARKETING ANALYTICS, SCOUT Primary Care Unavailabl e BALTES EXERCISE SCIENTIST-DIRECTOR OF MARKETING ANALYTICS, SCOUT Primary Care Unavailabl e CLEM AGOSTO MD Attending Unavailable BALTES EXERCISE SCIENTIST-DIRECTOR OF MARKETING ANALYTICS, SCOUT Primary Care Unavailabl e BALTES EXERCISE SCIENTIST-DIRECTOR OF MARKETING ANALYTICS, SCOUT Attending Unavailabl e BALTES EXERCISE SCIENTIST-DIRECTOR OF MARKETING ANALYTICS, SCOUT Attending Unavailabl e BALTES EXERCISE SCIENTIST-DIRECTOR OF MARKETING ANALYTICS, SCOUT Primary Care Unavailabl e BALTES EXERCISE SCIENTIST-DIRECTOR OF MARKETING ANALYTICS, SCOUT Attending Unavailabl e BALTES EXERCISE SCIENTIST-DIRECTOR OF MARKETING ANALYTICS, SCOUT Primary Care Unavailabl e BALTES EXERCISE SCIENTIST-DIRECTOR OF MARKETING ANALYTICS, SCOUT Primary Care Unavailabl e BALTES EXERCISE SCIENTIST-DIRECTOR OF MARKETING ANALYTICS, SCOUT Attending Unavailabl e BALTES EXERCISE SCIENTIST-DIRECTOR OF MARKETING ANALYTICS, SCOUT Primary Care Unavailabl e ANA BUSBY Attending Unavailable BALTES EXERCISE SCIENTIST-DIRECTOR OF MARKETING ANALYTICS, SCOUT Attending Unavailabl e BALTES EXERCISE SCIENTIST-DIRECTOR OF MARKETING ANALYTICS, SCOUT Primary Care Unavailabl e Allergies Allergy Classification Reported Allergen(s) Allergy Type Date of Onset Reaction(s) Facility (4 sources) Dust Allergy to substance Sneezing (finding) [facility] Work Phone: (4 sources) Pollen Allergy to substance Sneezing (finding) [facility] Work Phone: (4 sources) Animal Dander Allergy to substance Sneezing (finding) [facility] Work Phone: (4 sources) Grass Allergy to substance Sneezing (>3) [facility] Work Phone: (4 sources) Hay Allergy to substance Sneezing (>3) [facility] Work Phone: NEGATED: Highlighted row has been ruled out! (1 source) Drug allergy V1-[facility] NEGATED: Highlighted row has been ruled out! (1 source) Drug allergy V1-[facility] NEGATED: Highlighted row has been ruled out! (1 source) Drug allergy V1-[facility] Medications Current Medications Medication Drug Class(es) Dates Sig (Normalized) Sig (Original) albuterol MDI (90 mcg/inh) CFC free inhalation aerosol (4 sources) Start: 08-26-2020 take 2 puff(s) by inhalation every two hours albuterol MDI (90 mcg/inh) CFC free inhalation aerosol 2 puff(s), Inhalation, q2h, # 1 EA, 0 Refill(s) Start Date: 08/26/20 Status: Ordered calcium carbonate 500 mg chewable tablet (1 source) Start: 08-06-2022 Tums 500 mg oral tablet, chewable Dose : 500 mg = 1 tab(s), Chewed, BID, PRN as needed for dyspepsia, 0 Refill(s) Start Date: 08/06/22 Status: Ordered ibuprofen 200 mg oral tablet (1 source) Nonsteroidal Anti-inflammatory Drug Start: 12-08-2018 ibuprofen 200 mg oral tablet Dose : 400 mg = 2 tab(s), Oral, q6h, PRN for pain, Take with food or milk., 0 Refill(s) Start Date: 12/08/18 Status: Ordered omeprazole 40 mg delayed release oral capsule (3 sources) Proton Pump Inhibitor Start: 02-08-2022 omeprazole 40 mg oral delayed release capsule Dose : 40 mg = 1 cap(s), Oral, qDay, # 30 cap(s), 2 Refill(s), [id number], 190.5, cm, 01/06/22 16:01:00 EST, Height, kg, 01/06/22 16:01:00 EST, Dosing Weight Start Date: 02/08/22 Status: Ordered Completed/Discontinued Medications Medication Drug Class(es) Dates Sig (Normalized) Sig (Original) OTC laxative (1 source) Start: 08-06-2022 OTC laxative O TC laxative, 1 tab(s), Oral, Every other day, 0 Refill(s), 82.2 Start Date: 08/06/22 Status: Ordered Problems Problem Classification Problem Date Documented Da te Episodic/Chronic Abdominal hernia (4 sources) Inguinal hernia 02-26-2020 Episodic Abdominal pain (7 sources) Chronic abdominal pain; Translations: [Abdominal pain] 07-02-2019 Episodic Asthma (4 sources) Asthma 02-07-2017 Chronic Conditions associated with dizziness or vertigo (4 sources) Dizziness; Translations: [Dizziness and giddiness] Onset: 3 04-28-2022 Episodic Esophageal disorders (4 sources) Gastroesophageal reflux disease 12-08-2018 Chronic Malaise and fatigue (3 sources) Asthenia 04-28-2022 Episodic Nausea and vomiting (3 sources) Nausea 07-23-2021 Episodic Other circulatory disease (3 sources) Orthostatic hypotension 01-07-2022 Episodic Other gastrointestinal disorders (4 sources) Irritable bowel syndrome 02-07-2017 Chronic Other nervous system disorders (3 sources) Muscular dystrophy 02-07-2017 Chronic Other non-traumatic joint disorders (3 sources) Joint pain 07-23-2021 Episodic Other nutritional; endocrine; and metabolic disorders (4 sources) Body mass index 25-29 - overweight 09-08-2018 Episodic Other nutritional; endocrine; and metabolic disorders (3 sources) Unexplained weight loss 04-28-2022 Episodic Substance-related disorders (4 sources) Marijuana user 07-02-2019 Episodic Syncope (3 sources) Syncope 01-07-2022 Episodic Unclassified (4 sources) Bipolar (qualifier value) 12-08-2018 Results Test Name Value Interpretation Reference Range Facil ity Vital Signs Date Time Vital Sign Value Performing Clinician Clayton king 09-15-2022 07:09-0400 Blood Pressure Location IWONA QUINTANILLA MD [facility] 09-15-2022 07:09-0400 Blood Pressure Method IWONA QUINTANILLA MD [facility] 09-15-2022 07:09-0400 Body temperature 97.88 [degF] IWONA QUINTANILLA MD [facility] 09-15-2022 07:09-0400 Body weight 81.8 kg IWONA QUINTANILLA MD [facility] 09-15-2022 07:09-0400 Diastolic Blood Pressure Non-Invasive 65 1 IWONA QUINTANILLA MD [facility] 09-15-2022 07:09-0400 Heart rate 73 /min IWONA QUINTANILLA MD [facility] 09-15-2022 07:09-0400 Respiratory rate 18 /min IWONA QUINTANILLA MD [facility] 09-15-2022 07:09-0400 Systolic Blood Pressure Non-Invasive 101 1 IWONA QUINTANILLA MD [facility] 01-15-2021 22:16-0500 Body height 188 cm SELVIN ECHOLS MD [facility] 01-15-2021 22:16-0500 Body temperature 97.88 [degF] SELVIN ECHOLS MD [facility] 01-15-2021 22:16-0500 Body weight 100 kg SELVIN ECHOLS MD [facility] 01-15-2021 22:16-0500 Diastolic blood pressure 63 mm[Hg] SELVIN ECHOLS MD [facility] 01-15-2021 22:16-0500 Heart rate 75 /min SELVIN ECHOLS MD [facility] 01-15-2021 22:16-0500 Respiratory rate 16 /min SELVIN ECHOLS MD [facility] 01-15-2021 22:16-0500 Systolic blood pressure 100 mm[Hg] SELVIN ECHOLS MD [facility] Encounters Encounter Date Encounter Type Care Provider Facility Start: 10-08-2022 End: 10-09-2022 ambulatory SCOUT BALANA EXERCISE SCIENTIST-DIRECTOR OF MARKETING ANALYTICS Facility:B Start: 09-15-2022 End: 09-15-2022 Emergency department patient visit SCOUT BALANA EXERCISE SCIENTIST-DIRECTOR OF MARKETING ANALYTICS Facility:B Start: 09-15-2022 End: 09-15-2022 Emergency department patient visit IWONA QUINTANILLA MD [facility] Start: 07-22-2022 ambulatory SCOUT BALANA EXERCISE SCIENTIST-DIRECTOR OF MARKETING ANALYTICS Fa cility:B Start: 06-01-2022 End: 06-02-2022 ambulatory SCOUT BALTES EXERCISE SCIENTIST-DIRECTOR OF MARKETING ANALYTICS Facility:B Start: 06-01-2022 End: 06-01-2022 Patient encounter procedure SCOUT BALTES EXERCISE SCIENTIST-DIRECTOR OF MARKETING ANALYTICS [facility] Start: 05-20-2022 End: 05-21-2022 ambulatory SCOUT BALTES EXERCISE SCIENTIST-DIRECTOR OF MARKETING ANALYTICS Facility:B Start: 05-20-2022 End: 05-20-2022 Patient encounter procedure SCOUT BALANA EXERCISE SCIENTIST-DIRECTOR OF MARKETING ANALYTICS [facility] Start: 04-28-2022 End: 04-29-2022 ambulatory SCOUT BALTES EXERCISE SCIENTIST-DIRECTOR OF MARKETING ANALYTICS Facility:B Start: 02-17-2022 ambulatory SCOUT BALTES EXERCISE SCIENTIST-DIRECTOR OF MARKETING ANALYTICS Fa cility:B Start: 02-12-2022 ambulatory SCOUT BALTES EXERCISE SCIENTIST-DIRECTOR OF MARKETING ANALYTICS Fa cility:B Start: 01-15-2021 End: 01-16-2021 Emergency department patient visit SELVIN ECHOLS MD [facility] Procedures Date Procedure Procedure Detail Performing Clinician Start: 03-20-2020 Excision of hernial sac of right inguinal canal SELVIN ECHOLS MD Start: 01-01-1988 Muscle biopsy sample (specimen) SELVIN ECHOLS MD Colonoscopy SELVIN ECHOLS MD Myringotomy and inse rtion of tympanic ventilation tube SELVIN ECHOLS MD Payers Date Payer Category Payer Private Health Insurance [id number] 2022 Private Health Insurance [id number] 2022 Medicaid [id number] 1980 Unknown [id number] [id number] 1978 Unknown [id number] 2.16.8 [id number] 1978 Unknown [id number] 2.16.8 [id number] 1978 Unknown [id number] 2.16.8 [id number] 1978 Unknown [id number] 2.16.8 [id number] 1978 Unknown [id number] 2.16.8 [id number] 1978 Unknown [id number] 2.16.8 [id number] 1978 Unknown [id number] 2.16.8 [id number] Social History Date Type Detail Facility Start: 08-20-2020 Heavy tobacco smoker (finding) [facility] Sex Assigned At Male [facility] Functional Status Date Assessment Result Facility 09-15-2022 Functional Status ID band on, Call device within reach, Bed in low position, Wheels locked, Upper/Half-Length side-rails up [facility] Mental Status Date Assessment Result Facility 09-15-2022 Mental Status Oriented x 4 [facility] Clinical Notes 01-16-2021 to 09-15-2022 LaboratoryLaboratoryLaboratory Note Date & Type Note Facility 09-15-2022 Hospital Discharg e instructions Patient Education 09/15/2022 08:00:57 Dizziness, Uncertain Cause Dizziness (Uncertain Cause) Dizziness is a common symptom. It may be described as lightheadedness, spinning, or feeling like you are going to faint. Dizziness can have many causes. Be sure to tell the healthcare provider about: All medicines you take, including prescription, [id number], herbs, and supplements Any other symptoms you have Any health problems you are being treated for Any past major health problems you've had, such as a heart attack, balance issues, hearing problems, or blood pressure problems Anything that causes the dizziness to get worse or better Today's exam did not show an exact cause for your dizziness. Other tests may be needed. Follow up with your healthcare provider. Home care Dizziness that occurs with sudden standing may be a sign of mild dehydration. Drink extra fluids for the next few days. If you recently started a new medicine, stopped a medicine, or had the dose of a current medicine changed, talk with the prescribing healthcare provider. Your medicine plan may need adjustment. If dizziness lasts more than a few seconds, sit or lie down until it passes. This may help prevent injury in case you pass out. Get up slowly when you feel better. Don't drive or use power tools or dangerous equipment until you have had no dizziness for at least 48 hours. Follow-up care Follow up with your healthcare provider for further evaluation within the next 7 days or as advised. When to seek medical advice Call your healthcare provider for any of the following: Worsening of symptoms or new symptoms Passing out or seizure Repeated vomiting Headache Palpitations (the sense that your heart is fluttering or beating fast or hard) Shortness of breath Blood in vomit or stool (black or red color) Weakness of an arm or leg or 1 side of the face Vision or hearing changes Trouble walking or speaking Chest, arm, neck, back, or jaw pain 8420-0863 [employer]. [address] [place] [address], [place] [address]. All rights reserved. This information is not intended as a substitute for professional medical care. Always follow your healthcare professional's instructions. Follow Up Care 09/15/2022 07:06:00 With:SCOUT MORALESDIRECTOR OF MARKETING ANALYTICS Address: [address] [place] [phone] When:2-4 days [facility] 09-15-2022 Note Discharge Instructions Thank you for allowing [facility] to assist you with your healthcare needs. The following is important discharge information regarding your hospital visit. Diagnosis from Today's Visit Dizziness Dizziness What to Do Next Instructions from Your Care Team Discharge Return to Work, School, or Sports (Return to Work, School, or Sports) - Ordered -- May return to: work, please excuse on 09/14/22, 09/15/22 8:00:00 EDT Post Acute Orders No qualifying data available. You Need to Schedule the Following Appointments Follow Up with SCOUT MORALES When Within 2-4 days Where: [address] [place] [address] [phone] Allergies Animal Dander (Sneeze) Dust (Sneeze) Grass (Sneezing (>3)) Hay (Sneezing (>3)) No Known Medication Allergies Pollen (Sneeze) Medications Please ask your primary doctor or pharmacist before taking any other medication not listed, including over the counter drugs, herbal medications, vitamins and or supplements as they may interact with your home medications. What How Much When Why Instructions Last Dose Unchanged albuterol (albuterol MDI (90 mcg/ inh) CFC free inhalation aerosol) 2 puff(s) by inhalation Every 2 hours Unchanged calcium carbonate (Tums 500 mg oral tablet, chewable) 1 tab(s) Chewed Two (2) times a day as needed for as needed for dyspepsia Unchanged Misc Medication (OTC laxative) 1 tab(s) by mouth Every other day Unchanged polyethylene glycol 3350 (MiraLax oral powder for reconstitution) 17 gram(s) by mouth Every other day as needed for Constipation Constipation Duration: 30 Days Please take this list to your next doctor s visit. Bring all medications you take, including over the counter medications, herbals and other supplements with you to your doctor s visit. Patients and families are reminded to discard old lists and to update any records with all medication providers or retail pharmacies. Education Materials Dizziness (Uncertain Cause) Dizziness is a common symptom. It may be described as lightheadedness, spinning, or feeling like you are going to faint. Dizziness can have many causes. Be sure to tell the healthcare provider about: All medicines you take, including prescription, [id number], herbs, and supplements Any other symptoms you have Any health problems you are being treated for Any past major health problems you've had, such as a heart attack, balance issues, hearing problems, or blood pressure problems Anything that causes the dizziness to get worse or better Today's exam did not show an exact cause for your dizziness. Other tests may be needed. Follow up with your healthcare provider. Home care Dizziness that occurs with sudden standing may be a sign of mild dehydration. Drink extra fluids for the next few days. If you recently started a new medicine, stopped a medicine, or had the dose of a current medicine changed, talk with the prescribing healthcare provider. Your medicine plan may need adjustment. If dizziness lasts more than a few seconds, sit or lie down until it passes. This may help prevent injury in case you pass out. Get up slowly when you feel better. Don't drive or use power tools or dangerous equipment until you have had no dizziness for at least 48 hours. Follow-up care Follow up with your healthcare provider for further evaluation within the next 7 days or as advised. When to seek medical advice Call your healthcare provider for any of the following: Worsening of symptoms or new symptoms Passing out or seizure Repeated vomiting Headache Palpitations (the sense that your heart is fluttering or beating fast or hard) Shortness of breath Blood in vomit or stool (black or red color) Weakness of an arm or leg or 1 side of the face Vision or hearing changes Trouble walking or speaking Chest, arm, neck, back, or jaw pain 4526-3095 [employer]. [address] [place] [address], [place] [address]. All rights reserved. This information is not intended as a substitute for professional medical care. Always follow your healthcare professional's instructions. Additional Information VACCINATE! IT SAVES LIVES! Members of the community who have not yet received the COVID-19 vaccine and would like to receive it can visit one of [facility] vaccine clinics. There are many vaccine clinic locations within the [facility]. For locations and available times, please visit [email or web address] It is important to note that some COVID mobile vaccine clinics are held outdoors and may be canceled in rainy or stormy conditions. To learn more about pediatric vaccinations (ages 5-11), we invite you to visit the [facility] webpage. [email or web address] To learn more about the COVID-19 vaccine, we invite you to visit the CDC website for a list of frequently asked questions. https://www.cdc.gov/coronavirus/ 2019-ncov/vaccines/faq.html [facility] Patient Portal Access Instructions: Stay connected with your healthcare team and access your personal medical information anytime with the [facility] Patient Portal. If you would like a full copy of your medical records please contact the [facility] Medical Records Department Tuesday through Tuesday between 8a.m. and 4:30p.m. Please follow the directions below to access the portal: 1.Access the email account you provided upon registration to the [facility].2.Look for an invitation email from [facility].3.Open the email and access the invitation link: Accept Invitation to [facility]4.Fill in the required alicea to create your account. Sign into [email or web address] with your username and password that you created in the above steps to stay up to date. You can then view a summary of results, a summary of your visits, and the ability to download your summaries to your computer or send the information securely to a physician. Remember that your healthcare information is confidential, so carefully consider who you will allow to register on the [facility] Patient Portal for access to your information. You can also access the [facility] Patient Portal on the [employer]Chef.in kellie. Simply click on Health Records under Health Data and then click on the [employer] logo. HOW TO SAFELY DISPOSE OF PRESCRIPTION MEDICATIONS Please use one of the following methods to safely dispose of your unused medications. 1.Use a drug disposal kit: the drug disposal pouch allows you to safely discard your old and unused drugs. Ask your nurse to give you one when you are discharged.2.Visit a local take-back location: Many local pharmacies and police departments have programs that collect old and unwanted prescription drugs. Call your local pharmacy or go to http://[employer].SeatMe/4C9Is5f to find one close to you.3.Make use of household items: Use cat litter or old coffee grounds to dispose medications if other options are not available. Mix your drugs with these household products, seal them in an airtight container and throw it into the garbage. Call [facility]: [phone] to be sure your drugs can be disposed of in this way. Some medicines may require a different approach.4.Never flush your medications down the toilet. IF YOU HAVE BEEN PRESCRIBED AN OPIOIDS FOR PAIN If you have been prescribed an opioid (such as hydrocodone, oxycodone or morphine), it is critical to understand the possible side effects and risks of opioid pain medications. Even when taken as directed, opioids can have several side effects including: Tolerance, meaning you might need to take more of a medication for the same pain relief. Nausea, vomiting and/or constipation. Sleepiness, dizziness, dry mouth, confusion, depression or itching. Physical dependence, meaning you have withdrawal symptoms when a medication is stopped ? this can develop within a few days. KNOW YOUR RESPONSIBILITIES It is important to know exactly how much and how often to take the opioid pain medications you are prescribed. Never take opioids in higher amounts or more often than prescribed. Do not combine opioids with alcohol or other drugs that cause drowsiness, such as benzodiazepines, also known as benzos, including diazepam and alprazolam, muscle relaxants or sleep aids. Never sell or share prescription opioids. This is illegal. Store opioids in a secure place and out of reach of others (including children, family, friends and visitors). The last page(s) of this document has been signed and retained as a CHART COPY Signatures Patient Education Materials Dizziness, Uncertain Cause Medication Leaflets My discharge plan and instructions have been reviewed and explained to me and IANTONINO TIMOTHY S understand my current condition and have read and understand these discharge instructions. I have received a written copy of the plan/instructions. If I have questions, I am aware that I should contact my doctor. Patient/Management Expert Signature: Date/Time: Relationship to Patient: Witness Name/Signature: Date/Time: [facility] 09-15-2022 Note ORIGINAL EXAMINATION: CT OF THE HEAD WITHOUT CONTRAST 09/15/2022 7:45 am TECHNIQUE: CT of the head was performed without the administration of intravenous contrast. Automated exposure control, iterative reconstruction, and/or weight based adjustment of the mA/kV was utilized to reduce the radiation dose to as low as reasonably achievable. COMPARISON: None. HISTORY: ORDERING SYSTEM PROVIDED HISTORY: Reason for Exam: syncopal episode FINDINGS: BRAIN/VENTRICLES: There is no acute intracranial hemorrhage, mass effect or midline shift. No abnormal extra-axial fluid collection. The gross-white differentiation is maintained without evidence of a large vessel territorial acute infarct. There is no evidence of hydrocephalus. ORBITS: The visualized portion of the orbits demonstrate no acute abnormality. SINUSES: Aerated secretions with complete opacification of the right frontal sinus. Mild right anterior ethmoid mucosal thickening. Otherwise, the visualized paranasal sinuses and mastoid air cells are essentially clear.. SOFT TISSUES/SKULL: No acute abnormality of the visualized skull or soft tissues. IMPRESSION: No acute intracranial abnormality. Findings which can be seen with acute sinusitis in the appropriate clinical setting. Preliminary Report was Dictated by a Resident Interpreted by: Brian Christensen MD Preliminary Report By: Tuan Hernandez Electronically signed By Brian Christensen MD Dictated Date: 09/15/2022 7:49:33 AM Prelim Date: 09/15/2022 7:52:47 AM Sign Date: 09/15/2022 8:48:54 AM Ordering Provider: NAA BUSBY [facility] 09-15-2022 Note Sinus rhythm Borderline left axis deviation Electronic Signature: ANA BUSBY MD 09/15/2022 07:35:23 [facility] 04-28-2022 Evaluation + Plan note Future Scheduled TestsCKMB Panel 04/28/22 [facility] 04-28-2022 Evaluation + Plan note Future Scheduled TestsCKMB Panel 04/28/22Rheumatoid Factor 08/06/22 [facility] 01-16-2021 Hospital Discharg e instructions Patient Education 01/16/2021 00:58:33 HERNIA (Inguinal, Ventral, Umbil) Hernia [Adult] A hernia is a bulge of the intestines or surrounding tissues through a tear in the muscle of the abdomen or groin. This may occur as a result of excessive coughing, heavy lifting or being overweight. It can also occur at the site of prior surgery. When a hernia first appears it may be painful due to stretching and tearing of the muscle fibers. When you lie down, the bulge should reduce in size or disappear completely. If it does not, and you are unable to flatten it with your hand, medical attention is needed at once. Home Care: Avoid heavy lifting and straining or any activities that cause pain in the hernia. Follow Up with your physician as directed by our staff. Get Prompt Medical Attention if any of the following occur: Increasing size of the hernia Increasing pain in the hernia A hernia that does not get smaller when you lie down Hardening of the hernia Abdominal swelling, fever or repeated vomiting Pain moves to the lower right abdomen (just below the waistline) or spreads to the back [id number] [employer]. [address] [place] [address]. All rights reserved. This information is not intended as a substitute for professional medical care. Always follow your healthcare professional's instructions. Follow Up Care 01/15/2021 22:09:28 With:LIZBETH STORM MD, Surgery Address: [phone] When:2-4 days With:SCOUT MORALES APRNNEW [facility] Address: [phone] When:2-4 days [facility] Evaluation + Plan note Future Appointments Appointment Date:01/19/2021 03:50:00 PM Scheduled Provider:LIZBETH STORM MD Location:[facility] Appointment Type:[facility] OV New Problem [facility] Evaluation + Plan note Future Appointments Appointment Date:06/01/2022 07:45:00 AM Scheduled Provider: Location:[facility] Appointment Type:HL Plain Stress Test Future Scheduled TestsCKMB Panel 04/28/22 [facility] Hospital course Narrative No data available for this section [facility] Hospital Discharge instructions No data available for this section [facility] Progress note No data available for this section [facility] Summary Purpose Family History No Family History Records Found Advance Directives No Advanced Directives Records Found Additional Source Comments Patient Care team informatio n (unrecognized section and content) Care Team Personnel Name: SCOUT MORALES Position: P4 Advanced Senior Medical Director Member Role: Primary Care Physician Address: Address: [address] [place] [address] Care Team Related Persons Name: BALTA TERESA Care Team Personnel Name: SCOUT MORALES Position: P4 Advanced Senior Medical Director Member Role: Primary Care Physician Address: Address: [address] [place] [address] Care Team Related Persons Name: BALTA TERESA Care Team Personnel Name: SCOUT MORALES Position: P4 Advanced Senior Medical Director Member Role: Primary Care Physician Address: Address: [address] [place] [address] Name: Caridad Del Rosario RN Position: AO RN Member Role: ED RN Name: ANA BUSBY MD Position: ED Physician Address: Address: [facility] [address] [place] [id number] Care Team Related Persons Name: BALTA TERESA (unrecognized sect ion and content) No Status Records Found INFORMATION SOURCE (unrecogn ized section and content) FOR RECORDS PERTAINING TO PATIENTS WHO ARE OR HAVE BEEN ENROLLED IN A CHEMICAL DEPENDENCY/SUBSTANCEABUSE PROGRAM, SOME INFORMATION MAY BE OMITTED. This clinical summary was aggregated from multiple sources. Caution should be exercised in using it in the provision of clinical care. This summary normalizes information from multiple sources, and as a consequence, information in this document may materially change the coding, format and clinical context of patient data. In addition, data may be omitted in some cases. CLINICAL DECISIONS SHOULD BE BASED ON THE PRIMARY CLINICAL RECORDS. [facility]. provides no warranty or guarantee of the accuracy or completeness of information in this document.
== END 2023-03-16 11:31 | disposition home or self-care (01) ==
LOC: ED 11:27
PROVIDERS: Emergency Provider Emergency Medicine; PCP Nurse Practitioner Primary Care; Visit Provider Emergency Medicine
DX: R10.9 Unspecified abdominal pain (principal); G89.29 Other chronic pain; F17.210 Nicotine dependence, cigarettes, uncomplicated
CPT/HCPCS: 99282

== ENCOUNTER 2023-05-09 05:54 | Emergency (ER) | payer OTHER, MEDICAID, SELFPAY ==
[2023-05-09 05:54] VITALS: BP 133/89; PULSE 85; RESP 16; TEMP 37.1; O2SAT 97; BMI 22.9
--- NOTE | 2023-05-09 05:58 | ED.VIS.DENTA ---
HPI History of Present Illness Chief Complaint: Dental [facility] Medical History Abdominal pain Muscular dystrophy Home Medications amoxicillin 875 mg-potassium clavulanate 125 mg tablet 1 tab PO BID #14 tabs 05/09/23 [Rx Last Taken Unknown] Allergy/AdvReac Type Severity Reaction Status Date / Time No Known Allergies Allergy Verified 05/09/23 05:54 Family History Grandmother Cancer stomach or intestinal cancer Diabetes Mother Cancer lung cancer Diabetes Grandfather CVA (cerebral vascular accident) Surgical History History of hernia repair No history of previous surgery Social History Smoking Status: Current every day smoker tobacco type: cigarettes alcohol intake: current alcohol intake frequency: a few times a month substance use type: marijuana EXAM Physical Exam Const Vital Signs: 05/09/23 05:54 05/09/23 06:31 Temperature 98.7 F 98.7 F Temperature Source Temporal Pulse Rate 85 89 Respiratory Rate 16 16 Blood Pressure 133/89 H 136/74 H Blood Pressure Mean 103 94 Pulse Ox 97 97 Oxygen Delivery Method Room Air MDM MDM MDM Narrative Medical decision making narrative: HISTORY OF PRESENT ILLNESS: 42-year-old male presents with dental pain. Notes 5 days of increasing pain and swelling right lower jaw. REVIEW OF SYSTEMS: Pertinent positives: Dental pain Pertinent negatives: PHYSICAL EXAM: Nursing triage notes reviewed, Vital signs reviewed Constitutional: please see mdm HENT: MMM, right lower molars with obvious fluctuant abscess. No submandibular edema or induration, no tonsillar exudates or erythema, uvula midline, patient was controlling secretions, no drooling, no trimus, no dysphonia Eyes: Pupils equal round and reactive to light, Extraocular muscles intact Neck: No stridor, no JVD, full neck ROM Lungs: Clear to auscultation, No wheezing or rales. No increased work of breathing, no conversational dyspnea, no accessory muscle use, no nasal flaring. No respiratory distress noted Heart: Regular rate and rhythm, No murmurs, No rubs and No gallops, 2+ distal pulses (radial, femoral, posterior tibial) in all extremities MEDICAL DECISION MAKING: Chief Complaint: Dental pain External records reviewed: No recent ED visits for similar symptoms Factors affecting care: Chronic abdominal pain, diverticulitis MDM Narrative: The patient was hemodynamically stable, afebrile, nontoxic-appearing. Exam consistent with dental abscess I considered the following differential diagnosis: Dental abscess, ANUG, Ludewig's angina, RPA, PIPE CHIPPER, dental caries, gingivitis Exam consistent with dental abscess. Incision and drainage performed. Procedure: Incision and Drainage simple right lower molar dental abscess The procedure was performed by myself. Location: Right lower molar Risks and benefits: Risks, benefits, and alternatives were discussed. Questions were sought and answered, and verbal consent provided for the procedure. Anesthesia: 1% lidocaine Procedure Description: Anesthetized area 1% lidocaine with a 25-gauge needle then inserted 18-gauge needle for drainage of approximately 1 cc of purulent fluid The patient tolerated the procedure well without complications. Gave dental follow-up Gave prophylactic antibiotics. Shared decision making: I will have a discussion with the patient and or visitors regarding risk/benefits of further testing or admission. They will be made aware of of the risk/benefits inherent in this decision they will be given the opportunity to voice understanding. Impression: 1. Dental abscess Disposition: Discharge Discharge Plan Triage Chief Complaint: Dental ED Provider: Mitchel Gonsalez Dx/Rx/DC Orders Clinical Impression: Dental abscess Prescriptions: New amoxicillin-pot clavulanate 875-125 mg tablet 1 tab PO BID Qty: 14 0RF Stand Alone Forms: ED Work / School Excuse Primary Care Provider: Matt Silva NP Referrals: Matt Silva NP, [employer] [Primary Care Provider] - Activity Restrictions/Additional Instructions: Thank you for trusting us with your care today! Please take Tylenol (2 pills, 650 mg), ibuprofen (2 pills, 400 mg) every 6 hours as needed for pain and fever control. Please take antibiotics as prescribed. Please return to the emergency department if your symptoms change or worsen. Specifically if you develop drooling, cannot swallow your secretions, you develop swelling underneath your jaw, you develop trouble breathing, or the sensation that your throat is closing. Please follow with dental resources that were provided for further outpatient evaluation and management. Disposition Disposition: Home, Self Care Discharge Date/Time: 05/09/23 06:32
--- OUTSIDE RECORDS SUMMARY | 2023-05-09 06:28 | XMS RPT_ITS | CCD ---
Author Name Unknown Address [address] [place] [address] Organization [facility] Care Team Providers Care Rn Rehab Name Role Phone CARMEN BYRNES, SCOUT Primary Care Physician QI SMALL, ANA Sethi Attending Unavail able BALTES ASSISTANT OFFICE MANAGER-PRECISION INSPECTOR, SCOUT Primary Care Unavailabl e BALTES ASSISTANT OFFICE MANAGER-PRECISION INSPECTOR, SCOUT Primary Care UnavailCLEM Duarte MD Attending Unavailable BALTES ASSISTANT OFFICE MANAGER-PRECISION INSPECTOR, SCOUT Attending Unavailabl e BALTES ASSISTANT OFFICE MANAGER-PRECISION INSPECTOR, SCOUT Primary Care Unavailabl e BALTES ASSISTANT OFFICE MANAGER-PRECISION INSPECTOR, SCOUT Attending Unavailabl e BALTES ASSISTANT OFFICE MANAGER-PRECISION INSPECTOR, SCOUT Primary Care Unavailabl e BALTES ASSISTANT OFFICE MANAGER-PRECISION INSPECTOR, SCOUT Attending Unavailabl e BALTES ASSISTANT OFFICE MANAGER-PRECISION INSPECTOR, SCOUT Primary Care Unavailabl e BALTES ASSISTANT OFFICE MANAGER-PRECISION INSPECTOR, SCOUT Primary Care Unavailabl e ANA BUSBY MD Attending Unavail able Allergies Allergy Classification Reported Allergen(s) Allergy Type Date of Onset Reaction(s) Facility (5 sources) Dust Allergy to substance Sneezing (finding) [facility] Work Phone: (5 sources) Pollen Allergy to substance Sneezing (finding) [facility] Work Phone: (5 sources) Animal Dander Allergy to substance Sneezing (finding) [facility] Work Phone: (5 sources) Grass Allergy to substance Sneezing (>3) [facility] Work Phone: (5 sources) Hay Allergy to substance Sneezing (>3) [facility] Work Phone: NEGATED: Highlighted row has been ruled out! (1 source) Drug allergy V1-[facility] NEGATED: Highlighted row has been ruled out! (1 source) Drug allergy V1-[facility] NEGATED: Highlighted row has been ruled out! (1 source) Drug allergy V1-[facility] NEGATED: Highlighted row has been ruled out! (1 source) Drug allergy V1-[facility] Medications Current Medications Medication Drug Class(es) [...] 0 Refill(s) Start Date: 08/06/22 Status: Ordered cyclobenzaprine hydrochloride 10 mg oral tablet (1 source) Muscle Relaxant Start: 04-19-2023 cyclobenzaprine 10 mg oral tablet Dose : 10 mg = 1 tab(s), Oral, TID, PRN as needed for spasm, # 30 tab(s), 0 Refill(s) Start Date: 04/19/23 Status: Ordered ibuprofen 200 mg oral tablet [...] qDay, # 30 cap(s), 2 Refill(s), Pharmacy: [id number], 190.5, cm, 01/06/22 16:01:00 EST, Height, kg, 01/06/22 16:01:00 EST, Dosing Weight Start Date: 02/08/22 Status: Ordered Completed/Discontinued Medications Medication Drug Class(es) Dates Sig (Normalized) Sig (Original) OTC laxative (1 source) Start: 08-06-2022 OTC laxative O TC laxative, 1 tab(s), Oral, Every other day, 0 Refill(s), 82.2 Start Date: 08/06/22 Status: Ordered Problems Problem Classification Problem Date Documented Da te Episodic/Chronic Abdominal hernia (5 sources) Inguinal hernia 02-26-2020 Episodic Abdominal pain (9 sources) Chronic abdominal pain; Translations: [Abdominal pain] 07-02-2019 Episodic Asthma (5 sources) Asthma 02-07-2017 Chronic Conditions associated with dizziness or vertigo (5 sources) Dizziness; Translations: [Dizziness and giddiness] Onset: 3 04-28-2022 Episodic Esophageal disorders (5 sources) Gastroesophageal reflux disease 12-08-2018 Chronic Malaise and fatigue (4 sources) Asthenia 04-28-2022 Episodic Nausea and vomiting (4 sources) Nausea 07-23-2021 Episodic Other circulatory disease (4 sources) Orthostatic hypotension 01-07-2022 Episodic Other gastrointestinal disorders (5 sources) Irritable bowel syndrome 02-07-2017 Chronic Other nervous system disorders (3 sources) Muscular dystrophy 02-07-2017 Chronic Other non-traumatic joint disorders (4 sources) Joint pain 07-23-2021 Episodic Other nutritional; endocrine; and metabolic disorders (5 sources) Body mass index 25-29 - overweight 09-08-2018 Episodic Other nutritional; endocrine; and metabolic disorders (4 sources) Unexplained weight loss 04-28-2022 Episodic Substance-related disorders (5 sources) Marijuana user 07-02-2019 Episodic Syncope (5 sources) Syncope; Translations: [Syncope and collapse] Onset: 4 01-07-2022 Episodic Unclassified (5 sources) Bipolar (qualifier value) 12-08-2018 Results Test Name Value Interpretation Reference Range Facil ity Vital Signs Date Time Vital Sign Value Performing Clinician Faci lity 04-19-2023 09:20-0500 Diastolic blood pressure 75 mm[Hg] ANA BUSBY MD [facility] 04-19-2023 09:20-0500 Heart rate 68 /min ANA BUSBY MD [facility] 04-19-2023 09:20-0500 Respiratory rate 16 /min ANA BUSBY MD [facility] 04-19-2023 09:20-0500 Systolic blood pressure 117 mm[Hg] ANA BUSBY MD [facility] 04-19-2023 07:34-0500 Body temperature 97.16 [degF] ANA BUSBY MD [facility] 04-19-2023 07:34-0500 Body weight 82.5 kg ANA BUSBY MD [facility] 04-19-2023 07:34-0500 Diastolic Blood Pressure Non-Invasive 69 mm[Hg] ANA BUSBY MD [facility] 04-19-2023 07:34-0500 Heart rate 75 /min ANA BUSBY MD [facility] 04-19-2023 07:34-0500 Respiratory rate 16 /min ANA BUSBY MD [facility] 04-19-2023 07:34-0500 Systolic Blood Pressure Non-Invasive 99 mm[Hg] ANA BUSBY MD [facility] 09-15-2022 07:09-0400 Blood Pressure Location IWONA QUINTANILLA MD [facility] 09-15-2022 07:09-0400 Blood Pressure Method IWONA QUINTANILLA MD [facility] 09-15-2022 07:09-0400 Body temperature 97.88 [degF] IWONA QUINTANILLA MD [facility] 09-15-2022 07:09-0400 Body weight 81.8 kg IWONA QUINTANILLA MD [facility] 09-15-2022 07:09-0400 Diastolic Blood Pressure Non-Invasive 65 1 IWONA QUINTANILLA MD [facility] 09-15-2022 07:09-0400 Heart rate 73 /min IWONA QUINTANILLA MD [facility] 09-15-2022 07:09-0400 Respiratory rate 18 /min IWONA QUINTANILLA MD [facility] 09-15-2022 07:09-0400 Systolic Blood Pressure Non-Invasive 101 1 IWONA QUINTANILLA MD [facility] 01-15-2021 22:16-0500 Body height 188 cm SELVIN ECHOLS MD [facility] 01-15-2021 22:16-0500 Body temperature 97.88 [degF] SELVIN ECHOLS MD [facility] 01-15-2021 22:16-0500 Body weight 100 kg SELVIN ECHOLS MD [facility] 01-15-2021 22:16-0500 Diastolic blood pressure 63 mm[Hg] SELVIN ECHOLS MD [facility] 01-15-2021 22:16-0500 Heart rate 75 /min SELVIN ECHOLS MD [facility] 01-15-2021 22:16-0500 Respiratory rate 16 /min SELVIN ECHOLS MD [facility] 01-15-2021 22:16-0500 Systolic blood pressure 100 mm[Hg] SELVIN ECHOLS MD [facility] Encounters Encounter Date Encounter Type Care Provider Facility Start: 04-19-2023 End: 04-19-2023 Emergency department patient visit SCOUT BALANA ASSISTANT OFFICE MANAGER-PRECISION INSPECTOR Facility:B Start: 04-19-2023 End: 04-19-2023 Emergency department patient visit ANA BUSBY MD [facility] Start: 10-08-2022 End: 10-09-2022 ambulatory SCOUT BALANA ASSISTANT OFFICE MANAGER-PRECISION INSPECTOR Facility:B Start: 09-15-2022 End: 09-15-2022 Emergency department patient visit ANA BUSBY MD Facility:B Start: 09-15-2022 End: 09-15-2022 Emergency department patient visit IWONA QUINTANILLA MD [facility] Start: 07-22-2022 ambulatory SCOUT BALTES ASSISTANT OFFICE MANAGER-PRECISION INSPECTOR Fa cility:B Start: 06-01-2022 End: 06-02-2022 ambulatory SCOUT BALTES ASSISTANT OFFICE MANAGER-PRECISION INSPECTOR Facility:B Start: 06-01-2022 End: 06-01-2022 Patient encounter procedure SCOUT BALTES ASSISTANT OFFICE MANAGER-PRECISION INSPECTOR [facility] Start: 05-20-2022 End: 05-21-2022 ambulatory SCOUT BALTES ASSISTANT OFFICE MANAGER-PRECISION INSPECTOR Facility:B Start: 05-20-2022 End: 05-20-2022 Patient encounter procedure SCOUT BALTES ASSISTANT OFFICE MANAGER-PRECISION INSPECTOR [facility] Start: 01-15-2021 End: 01-16-2021 Emergency department patient visit SELVIN ECHOLS MD [facility] Procedures Date Procedure Procedure Detail Performing Clinician Start: 03-20-2020 Excision of hernial sac of right inguinal canal SELVIN ECHOLS MD Start: 02-28-1987 Muscle biopsy sample (specimen) SELVIN ECHOLS MD Colonoscopy SELVIN ECHOLS MD Myringotomy and inse rtion of tympanic ventilation tube SELVIN ECHOLS MD Payers Date Payer Category Payer Private Health Insurance [id number] 2022 Medicaid [id number] 2022 Private Health Insurance [id number] 1978 Unknown [id number] 1978 Unknown [id number] [id number] 1978 Unknown [id number] [id number] 1978 Unknown [id number] [id number] [id number] 1978 Unknown [id number] 2.16.8 [id number] 1978 Unknown [id number] [id number] [id number] Social History Date Type Detail Facility Start: 08-20-2020 Heavy tobacco smoker (finding) [facility] Sex Assigned At Male [facility] Functional Status Date Assessment Result Facility 04-19-2023 Functional Status Independent [facility] 04-19-2023 Functional Status Standard Safet y ID band on, Call device within reach, Bed in low position, Wheels locked [facility] 09-15-2022 Functional Status ID band on, Call device within reach, Bed in low position, Wheels locked, Upper/Half-Length side-rails up [facility] Mental Status Date Assessment Result Facility 04-19-2023 Mental Status Orientation Oriented x 4 [facility] 04-19-2023 Mental Status [facility] 09-15-2022 Mental Status Oriented x 4 [facility] Clinical Notes 01-16-2021 to 04-19-2023 LaboratoryLaboratoryLaboratory Note Date & Type Note Facility 04-19-2023 Hospital Discharg e instructions Patient Education 04/19/2023 08:56:32 Near Syncope, Unknown Near-Fainting with Uncertain Cause Fainting (syncope) is a temporary loss of consciousness (passing out). This happens when blood flow to the brain is reduced. Near-fainting (near-syncope) is like fainting, but you do not fully pass out. Instead, you feel like you are going to pass out, but do not actually lose consciousness. Signs and symptoms The following are symptoms of near-fainting: Feeling lightheaded or like you are going to faint Weak pulse Nausea Sweating Blurred vision or feeling like your vision is fading Palpitations Chest pain Hard time breathing Feeling cool and clammy Causes This happens when your blood pressure suddenly drops, and not enough blood flows to your brain. Common minor causes include: Sudden emotional stress such as fear, pain, panic, or the sight of blood Straining or overexertion, such as straining while using the toilet, coughing, or sneezing Standing up too quickly, or standing up for too long a time More serious causes include: Very slow, fast, or irregular heart rate (arrhythmia) Dehydration Significant blood loss Medicines, or a recent change in medicines. Medicines that can cause fainting include blood pressure or heart medicines. Heart attack Heart valve problems Remember, even minor causes can become serious if you fall and injure yourself, or are driving. You may need more tests. It is very important that you follow up with your doctor as advised. Home care The following guidelines will help you care for yourself at home: Rest today. Resume your normal activities as soon as you are feeling back to normal. If you become lightheaded or dizzy, lie down right away or sit with your head between your knees. Drink plenty of fluids and don't skip meals. Because the exact cause of your near fainting spell is not known, another spell could occur without warning. To stay safe, do not drive a car or use dangerous equipment. Do not take a bath alone. Use a shower instead. Do not swim alone. You can resume these activities when your healthcare provider says that you are no longer in danger of having a near-fainting spell. Follow-up care Follow up with your healthcare provider, or as advised. Call 911 Call 911 if any of the following occur: Another near-fainting or full fainting spell occurs, and it is not explained by the common causes listed above Chest, arm, neck, jaw, back or abdominal pain Shortness of breath Weakness, tingling, or numbness in one side of the face, or in one arm or leg Slurred speech, confusion, trouble walking or seeing Seizure When to seek medical advice Call your healthcare provider right away if any of these occur: Changes in your medicines Occasional mild lightheadedness, especially when standing up too quickly or straining [phone] [employer] [address] [place] [address]. All rights reserved. This information is not intended as a substitute for professional medical care. Always follow your healthcare professional's instructions. Follow Up Care 04/19/2023 07:34:10 With:SCOUT MORALES Address: [address] [facility] [place], [place] [phone]- [phone] When:2-4 days [facility] 04-19-2023 Note Discharge Instructions Thank you for allowing [facility] to assist you with your healthcare needs. The following is important discharge information regarding your hospital visit. Diagnosis from Today's Visit Malaise Near syncope What to Do Next Instructions from Your Care Team Discharge Return to Work, School, or Sports (Return to Work, School, or Sports) - Ordered -- May return to: work, excuse on 04/19/23, 04/19/23 8:56:00 EST Post Acute Orders No qualifying data available. You Need to Schedule the Following Appointments Follow Up with BALTES, SCOUT ASSISTANT OFFICE MANAGER-PRECISION INSPECTOR When Within 2-4 days Where: [address] [facility] [place] [phone]- [phone] Allergies Animal Dander (Sneeze) Dust (Sneeze) Grass (Sneezing (>3)) Hay (Sneezing (>3)) No Known Medication Allergies Pollen (Sneeze) Medications Please ask your primary doctor or pharmacist before taking any other medication not listed, including over the counter drugs, herbal medications, vitamins and or supplements as they may interact with your home medications. What How Much When Instructions Last Dose Unchanged cyclobenzaprine (cyclobenzaprine 10 mg oral tablet) 1 tab(s) by mouth Three (3) times a day as needed for as needed for spasm Please take this list to your next doctor s visit. Bring all medications you take, including over the counter medications, herbals and other supplements with you to your doctor s visit. Patients and families are reminded to discard old lists and to update any records with all medication providers or retail pharmacies. Education Materials Near-Fainting with Uncertain Cause Fainting (syncope) is a temporary loss of consciousness (passing out). This happens when blood flow to the brain is reduced. Near-fainting (near-syncope) is like fainting, but you do not fully pass out. Instead, you feel like you are going to pass out, but do not actually lose consciousness. Signs and symptoms The following are symptoms of near-fainting: Feeling lightheaded or like you are going to faint Weak pulse Nausea Sweating Blurred vision or feeling like your vision is fading Palpitations Chest pain Hard time breathing Feeling cool and clammy Causes This happens when your blood pressure suddenly drops, and not enough blood flows to your brain. Common minor causes include: Sudden emotional stress such as fear, pain, panic, or the sight of blood Straining or overexertion, such as straining while using the toilet, coughing, or sneezing Standing up too quickly, or standing up for too long a time More serious causes include: Very slow, fast, or irregular heart rate (arrhythmia) Dehydration Significant blood loss Medicines, or a recent change in medicines. Medicines that can cause fainting include blood pressure or heart medicines. Heart attack Heart valve problems Remember, even minor causes can become serious if you fall and injure yourself, or are driving. You may need more tests. It is very important that you follow up with your doctor as advised. Home care The following guidelines will help you care for yourself at home: Rest today. Resume your normal activities as soon as you are feeling back to normal. If you become lightheaded or dizzy, lie down right away or sit with your head between your knees. Drink plenty of fluids and don't skip meals. Because the exact cause of your near fainting spell is not known, another spell could occur without warning. To stay safe, do not drive a car or use dangerous equipment. Do not take a bath alone. Use a shower instead. Do not swim alone. You can resume these activities when your healthcare provider says that you are no longer in danger of having a near-fainting spell. Follow-up care Follow up with your healthcare provider, or as advised. Call 911 Call 911 if any of the following occur: Another near-fainting or full fainting spell occurs, and it is not explained by the common causes listed above Chest, arm, neck, jaw, back or abdominal pain Shortness of breath Weakness, tingling, or numbness in one side of the face, or in one arm or leg Slurred speech, confusion, trouble walking or seeing Seizure When to seek medical advice Call your healthcare provider right away if any of these occur: Changes in your medicines Occasional mild lightheadedness, especially when standing up too quickly or straining [phone] [employer] [address] [place] [address]. All rights reserved. This information is not intended as a substitute for professional medical care. Always follow your healthcare professional's instructions. Additional Information VACCINATE! IT SAVES LIVES! Members of the community who have not yet received the COVID-19 vaccine and would like to receive it can visit one of [facility] vaccine clinics. There are many vaccine clinic locations within the [facility]. For locations and available times, please visit [email or web address] [email or web address] It is important to note that some COVID mobile vaccine clinics are held outdoors and may be canceled in rainy or stormy conditions. To learn more about pediatric vaccinations (ages 5-11), we invite you to visit the [facility] webpage. https://www.[facility].org/p ages/4972-Tpwbz-Henihdvwoah-Freq fqadoc-Cwjbe-Txarubaho.html To learn more about the COVID-19 vaccine, we invite you to visit the CDC website for a list of frequently asked questions. https://www.cdc.gov/coronavirus/ 2019-ncov/vaccines/faq.html [facility] Patient Portal Access Instructions: Stay connected with your healthcare team and access your personal medical information anytime with the [facility] Patient Portal. If you would like a full copy of your medical records please contact the [facility] Medical Records Department Tuesday through Tuesday between 8a.m. and 4:30p.m. Please follow the directions below to access the portal: 1.Access the email account you provided upon registration to the [facility].2.Look for an invitation email from [facility].3.Open the email and access the invitation link: Accept Invitation to [facility].Fill in the required alicea to create your account. Sign into [email or web address].[email or web address] with your username and password that you [...] you will allow to register on the [facility] Patient Portal for access to your information. You can also access the [facility] Patient Portal on the [facility] kellie. Simply click on Health Records under Health Data and then click on the [employer] logo. HOW TO SAFELY DISPOSE OF PRESCRIPTION [...] Call your local pharmacy or go to http://K[employer]ala[employer]/8X1Zt3u to find one close to you.3.Make use of household items: Use cat litter or old coffee grounds to dispose medications if other options are not available. Mix your drugs with these household products, seal them in an airtight container and throw it into the garbage. Call [facility]: [phone] to be sure your drugs can be [...] a CHART COPY Signatures Patient Education Materials Near Syncope, Unknown Medication Leaflets My discharge plan and instructions have been reviewed and explained to me and IANTONINO TIMOTHY S understand my current condition and have read and understand these discharge instructions. I have received a written copy of the plan/instructions. If I have questions, I am aware that I should contact my doctor. Patient/Community Health Nurse Signature: Date/Time: Relationship to Patient: Witness Name/Signature: Date/Time: [facility] 09-15-2022 Hospital Discharg e instructions Patient Education 09/15/2022 08:00:57 Dizziness, Uncertain Cause Dizziness (Uncertain Cause) Dizziness is a common symptom. It may be described as lightheadedness, spinning, or feeling like you are going to faint. Dizziness can have many causes. Be sure to tell the healthcare provider about: All medicines you take, including prescription, [id number], herbs, and supplements Any other symptoms you [...] Chest, arm, neck, back, or jaw pain [phone] [employer] [address] [place] [address]. All rights reserved. This information is not intended as a substitute for professional medical care. Always follow your healthcare professional's instructions. Follow Up Care 09/15/2022 07:06:00 With:SCOUT MORALES Address: [address] [place] [phone] When:2-4 days [facility] 09-15-2022 Note Discharge Instructions Thank you for allowing [facility] to assist you with your healthcare needs. [...] SCOUT MORALES When Within 2-4 days Where: [address] [place] [phone] Allergies Animal Dander (Sneeze) Dust (Sneeze) Grass [...] about: All medicines you take, including prescription, [id number], herbs, and supplements Any other symptoms you [...] Chest, arm, neck, back, or jaw pain [phone] [employer]. [address] [place] [address], [place] [address]. All rights reserved. This information is not intended as a substitute for professional medical care. Always follow your healthcare professional's instructions. Additional Information VACCINATE! IT SAVES LIVES! Members of the community who have not yet received the COVID-19 vaccine and would like to receive it can visit one of [facility] vaccine clinics. There are many vaccine clinic locations within the [facility]. For locations and available times, please visit [email or web address] [email or web address] It is important to note that some COVID mobile vaccine clinics are held outdoors and may be canceled in rainy or stormy conditions. To learn more about pediatric vaccinations (ages 5-11), we invite you to visit the [facility] webpage. https://www.[facility].org/p ages/6199-Xttqr-Pjhngoexeby-Freq inhuzm-Ybfvj-Pkaskxajc.html To learn more about the COVID-19 vaccine, we invite you to visit the CDC website for a list of frequently asked questions. https://www.cdc.gov/coronavirus/ 2019-ncov/vaccines/faq.html [facility] Patient Portal Access Instructions: Stay connected with your healthcare team and access your personal medical information anytime with the [facility] Patient [facility]. If you would like a full copy of your medical records please contact the [facility] Medical Records Department Tuesday through Tuesday between 8a.m. and 4:30p.m. Please follow the directions below to access the portal: 1.Access the email account you provided upon registration to the hospital.2.Look for an invitation email from [facility].3.Open the email and access the invitation link: Accept Invitation to [facility].Fill in the required alicea to create your account. Sign into [email or web address] with your username and password that you [...] you will allow to register on the [facility] Patient Portal for access to your information. You can also access the [facility] Portal on the [facility] kellie. Simply click on Health Records under Health Data and then click on the [facility] logo. HOW TO SAFELY DISPOSE OF PRESCRIPTION [...] Call your local pharmacy or go to [email or web address]/[email or web address] to find one close to you.3.Make use of household items: Use cat litter or old coffee grounds to dispose medications if other options are not available. Mix your drugs with these household products, seal them in an airtight container and throw it into the garbage. Call [facility]: [phone] to be sure your drugs can be [...] aware that I should contact my doctor. Patient/Community Health Nurse Signature: Date/Time: Relationship to Patient: Witness Name/Signature: Date/Time: [facility] 09-15-2022 Note ORIGINAL EXAMINATION: CT OF THE [...] Sign Date: 09/15/2022 8:48:54 AM Ordering Provider: ANA BUSBY [facility] 09-15-2022 Note Sinus rhythm Borderline left axis deviation Electronic Signature: ANA BUSBY MD 09/15/2022 07:35:23 [facility] 04-28-2022 Evaluation + Plan note Future Scheduled TestsCKMB Panel 04/28/22 [facility] 04-28-2022 Evaluation + Plan note Future Scheduled TestsCKMB Panel 04/28/22Rheumatoid Factor 08/06/22 [facility] 01-16-2021 Hospital Discharg e instructions Patient Education [...] the waistline) or spreads to the back [id number] [employer]. [address] [place] [address]. All rights reserved. This information is not intended as a substitute for professional medical care. Always follow your healthcare professional's instructions. Follow Up Care 01/15/2021 22:09:28 With:LIZBETH STORM MD, Surgery Address: [id number] When:2-4 days With:SCOUT MORALES ASSISTANT OFFICE MANAGER-[facility] Address: [phone] When:2-4 days [facility] Evaluation + Plan note Future Appointments Appointment Date:01/19/2021 03:50:00 PM Scheduled Provider:LIZBETH STORM MD Location:[facility] Appointment Type:GS OV New Problem [facility] Evaluation + Plan note Future Appointments Appointment Date:06/01/2022 07:45:00 AM Scheduled Provider: Location:[facility] Appointment Type:HL Plain Stress Test Future Scheduled TestsCKMB Panel 04/28/22 [facility] Hospital course Narrative No data available for this section [facility] Hospital Discharge instructions No data available for this section [facility] Progress note No data available for this section [facility] Summary Purpose Family History No Family History Records Found Advance Directives No Advanced Directives Records Found Additional Source Comments Patient Care team informatio n (unrecognized section and content) Care Team Personnel Name: SCOUT MORALES Position: P4 Advanced Patient Representative Member Role: Primary Care Physician Address: Address: [address] [place] [address]- Care Team Related Persons Name: BALTA TERESA Care Team Personnel Name: SCOUT MORALES Position: P4 Advanced Patient Representative Member Role: Primary Care Physician Address: Address: [address] [place] [address] Care Team Related Persons Name: BALTA TERESA Care Team Personnel Name: SCOUT MORALES Position: P4 Advanced Patient Representative Member Role: Primary Care Physician Address: Address: [address] [place] [address] Name: Caridad Del Rosario RN Position: AO RN Member Role: ED RN Name: ANA BUSBY MD Position: ED Physician Address: Address: [facility] [address] [place] [id number] Care Team Related Persons Name: BALTA TERESA Care Team Personnel Name: SCOUT MORALES ASSISTANT OFFICE MANAGER-PRECISION INSPECTOR Position: P4 Advanced Patient Representative Member Role: Primary Care Physician Address: Address: [address] [place] [address]- Care Team Related Persons Name: BALTA TERESA [...] BE BASED ON THE PRIMARY CLINICAL RECORDS. [facility] [employer] [facility]. provides no warranty or guarantee of the accuracy or completeness of information in this document.
[2023-05-09 06:31] VITALS: BP 136/74; PULSE 89; RESP 16; TEMP 37.1; O2SAT 97
[2023-05-09] MEDS: Lidocaine 1% (20 ml mdv) 20 ML Vial 5 ML INFILT (06:31)
== END 2023-05-09 06:32 | disposition home or self-care (01) ==
LOC: ED 06:23
PROVIDERS: Emergency Provider Emergency Medicine; PCP Nurse Practitioner Primary Care; Visit Provider Emergency Medicine
DX: K04.7 Periapical abscess without sinus (principal); F17.210 Nicotine dependence, cigarettes, uncomplicated
CPT/HCPCS: 41800; 99282

== ENCOUNTER → 2024-05-21 | Outpatient (CLI) | payer MEDICAID, SELFPAY ==
--- NOTE | 2024-05-21 16:17 | MRI_ITS ---
PROCEDURE: SPINE CERVICAL (ROUTINE) 05/21/2024 REASON FOR EXAM: PAIN TECHNIQUE: Cervical spine MRI without intravenous gadolinium-based contrast. COMPARISON: Cervical spine radiograph 04/2019 FINDINGS: Vertebrae: Vertebral body heights are maintained disc spaces are within normal limits. Atlantoaxial interval is maintained. Alignment: Straightening of the cervical lordosis. Spinal Cord: Cervical spinal cord is of normal size and signal intensities. Structures at the foramen magnum are unremarkable. C2-3: No significant canal stenosis or neural foraminal narrowing. C3-4: No significant canal stenosis or neural foraminal narrowing. C4-5: No significant canal stenosis or neural foraminal narrowing. C5-6: [id number]-right uncinate hypertrophy and minimal facet degenerative changes with flattening of the ventral thecal sac. No significant canal stenosis or neural foraminal narrowing. C6-7: No significant canal stenosis or neural foraminal narrowing. C7-T1: No significant canal stenosis or neural foraminal narrowing. Postcontrast images: No suspicious contrast enhancement. MRI/Spine Cervical (Routine) IMPRESSION: Mild C5-C6 uncinate hypertrophy with flattening of the ventral thecal sac. No significant canal stenosis or neural foraminal narrowing. Otherwise, no acute findings of the cervical spine. Reading Location: [facility]
== END | disposition home or self-care (01) ==
LOC: MRI 16:14
PROVIDERS: PCP Nurse Practitioner Primary Care; Referring Provider Student in an Organized Health Care Education/Training Program; Visit Provider Student in an Organized Health Care Education/Training Program
DX: G95.9 Disease of spinal cord, unspecified (principal); M54.12 Radiculopathy, cervical region
CPT/HCPCS: 72141